=== PATIENT | female | born 1950 | race Caucasian/White ===

== ENCOUNTER 2019-08-30 12:09 | Outpatient (CLI) | payer MEDICARE, OTHER, SELFPAY ==
--- NOTE | ~2019-08-30 | XR_ITS ---
EXAMINATION: XR shoulder LT min 2V, XR shoulder RT min 2V DATE: 08/30/2019 12:42 INDICATION: Bursitis of the right shoulder. TECHNIQUE: 1. AP internally and externally rotated, AP oblique externally rotated and axillary views of the left shoulder were obtained. 2. AP internally and externally rotated, AP oblique externally rotated and axillary views of the righ t shoulder were obtained. COMPARISON: None FINDINGS: Again seen is an old healed fracture deformity at the lateral left clavicle and multiple old healed l eft rib fractures. Alignment at both shoulders is otherwise normal. No acute fracture.Mild osteoarthr itis at the bilateral glenohumeral and left acromioclavicular joints and moderate osteoarthritis at t he right acromioclavicular joint. Soft tissues are unremarkable. Visualized portions of the lungs are clear. IMPRESSION: 1. Moderate right acromioclavicular and mild left acromioclavicular and bilateral glenohumeral joints . 2. Old fracture deformities of the lateral left clavicle and a few anterolateral left ribs. Reviewed, dictated and finalized at location D. IMPRESSION: 1. Moderate right acromioclavicular and mild left acromioclavicular and bilater al glenohumeral joints. 2. Old fracture deformities of the lateral left clavicle and a few anterolatera l left ribs.
--- NOTE | ~2019-08-30 | XR_ITS ---
EXAMINATION: XR hip LT min 2V DATE: 08/30/2019 12:42 INDICATION: Left hip bursitis TECHNIQUE: Anteroposterior and frog leg lateral views of the left hip were obtained. COMPARISON: CT dated 04/12/2015 FINDINGS: Alignment is normal. No fracture. Left hip joint space is normal. Unchanged small enthesopathic ossic le near the tip of the greater trochanter along the distal anterior gluteus medius tendon. There are a few chronic sclerotic bone islands at the sacrum and left innominate bone. IMPRESSION: 1. Normal left hip joint with no acute osseous abnormality. 2. Unchanged small enthesopathic ossicle at the distal left gluteus medius tendon. Reviewed, dictated and finalized at location A. IMPRESSION: 1. Normal left hip joint with no acute osseous abnormality. 2. Unchanged small enthesopathic ossicle at the distal left gluteus medius tend on.
== END 2019-08-30 12:10 | disposition home or self-care (01) ==
PROVIDERS: PCP Family Medicine
DX: M75.51 Bursitis of right shoulder (principal); M70.62 Trochanteric bursitis, left hip; M19.011 Primary osteoarthritis, right shoulder; M19.012 Primary osteoarthritis, left shoulder
CPT/HCPCS: 73030; 73502

== ENCOUNTER 2019-09-20 10:43 | Outpatient (CLI) | payer MEDICARE, OTHER, SELFPAY ==
--- NOTE | ~2019-09-20 | CT_ITS ---
EXAMINATION:CT lung screening DATE: 09/20/2019 11:03 INDICATION: Personal history of nicotine dependence. Smoker who quit 4 years ago with 40 pack year hi story. TECHNIQUE: Computed tomography (CT) of the chest was performed without intravenous contrast. Automate d exposure control and iterative reconstruction technique were employed. The dose-length product (DLP ) was 108.69 mGy-cm. COMPARISON: Chest CT 12/03/2017 FINDINGS: There is moderate emphysema. There is mild atelectasis bilaterally. No pleural effusion. Th e heart size is normal. No pericardial effusion. There is a chronic compression fracture of T4. There are old healed left fractures. IMPRESSION: 1. Lung-RADS category 1: Negative. Continue annual screening with noncontrast low-dose chest CT in 12 months. Reviewed, dictated and finalized at location A. IMPRESSION: 1. Lung-RADS category 1: Negative. Continue annual screening with noncontrast l ow-dose chest CT in 12 months.
== END 2019-09-20 10:44 | disposition home or self-care (01) ==
PROVIDERS: PCP Family Medicine; Visit Provider Nurse Practitioner Family
DX: Z12.2 Encounter for screening for malignant neoplasm of respiratory organs (principal); Z87.891 Personal history of nicotine dependence
CPT/HCPCS: G0297

== ENCOUNTER 2020-02-16 13:37 | Outpatient (CLI) | payer MEDICARE, OTHER, SELFPAY ==
--- NOTE | ~2020-02-16 | MR_ITS ---
EXAMINATION: MR hip LT wo/w con DATE: 02/16/2020 15:02 INDICATION: Polyarthritis. Rheumatoid arthritis. TECHNIQUE: Magnetic resonance imaging (MRI) of the left hip was performed without and with 16 mL Mul tihance intravenous contrast. Sequences included full-field axial PD-weighted FS FSE, T1-weighted FS FSE and T1-weighted FSE, coronal of the pelvis with PD-weighted FS FSE, small field of view of the l eft hip with axial PD-weighted FS FSE, sagittal PD-weighted FS FSE and coronal PD weighted FS FSE. Po stcontrast small field of view coronal T1-weighted FS FSE and large ltdoc-ku-uiqi axial pelvis T1-sarah beth ghted FS FSE were obtained. Additional radial T1-weighted FGR oriented orthogonal to the acetabular r im were obtained for evaluation of the labrum. COMPARISON: Left hip radiographs dated 08/30/2019 FINDINGS: Bones/labrum/cartilage: Alignment is normal. A couple low signal intensity bone islands at the left innominate bone. No fract ure, avascular necrosis or pathologic marrow replacing process. Mild osteoarthritis at the left hip j oint with mild nonuniform joint space narrowing with partial thickness cartilage loss at the anterior and anterosuperior joint space but without degenerative subchondral changes. Small tear at the the 1 0:00-11:00 position of the anterosuperior left acetabular labrum. No cortical erosions. Fluid: Symmetric physiologic amount of fluid within both hip joints. Soft tissues: Normal and symmetric muscle bulk and signal in the pelvis and visualized proximal thighs. Partially v isualized homogeneous T1 hyperintense lipoma measuring up to 5.9 x 2.0 cm maximal transaxial dimensio ns situated between the proximal vastus intermedialis and vastus lateralis muscles and the more super ficial rectus femoris and tensor fascia marisela muscles. The iliopsoas and proximal hamstring tendons ar e normal. Moderate left gluteus medius and minimus tendinopathy with small heterotopic ossicle in the distal left gluteus minimus tendon. There is a partial thickness undersurface tear at the superior f acet insertion of the left gluteus medius tendon with asymmetric mild retraction of the anterior myot endinous junction. Mild tendinopathy at the right gluteus medius and minimus tendons without discrete tears. Mild bilateral peritrochanteric edema. More focal fluid signal and enhancement consistent wit h left gluteus medius and minimus bursitis. There are few scattered diverticula along the sigmoid col on without adjacent inflammatory change to suggest diverticulitis. The uterus is not identified and h as likely been surgically resected. Limited evaluation of visceral organs of the pelvis is otherwi se unremarkable. No pathologically enlarged pelvic/inguinal lymphadenopathy. IMPRESSION: 1. Mild left hip osteoarthritis with small tear at the anterosuperior glenoid labrum. 2. Likely acute on chronic moderate left gluteus medius and minimus tendinopathy/enthesitis with smal l enthesopathic ossicle at the distal radius minimus tendon and with partial-thickness undersurface t ear at the superior facet insertion of the gluteus medius tendon. 3. Left gluteus medius and minimus bursitis. Reviewed, dictated and finalized at location A. UM ROOFER IMPRESSION: 1. Mild left hip osteoarthritis with small tear at the anterosuperior glenoid l abrum. 2. Likely acute on chronic moderate left gluteus medius and minimus tendinopath y/enthesitis with small enthesopathic ossicle at the distal radius minimus tend on and with partial-thickness undersurface tear at the superior facet insertion of the gluteus medius tendon. 3. Left gluteus medius and minimus bursitis.
--- NOTE | ~2020-02-16 | XR_ITS ---
EXAMINATION: HAND-CHING ARTHRITIS 3+VIEWS DATE: 02/16/2020 15:22 INDICATION: Rheumatoid arthritis TECHNIQUE: Posteroanterior, lateral, and oblique views of the left and of the right hands as well as a ballcatchers view of both hands were obtained. COMPARISON: None. FINDINGS: Diffuse osteopenia but which appears significantly more severe with likely in the subarticular region s throughout the bones of the left hand and wrist relative to the contralateral bones at the right chris nd and wrist.. Bone alignment is normal. No fracture. Minimal to mild polyarticular osteoarthritis ch aracterized by minimal to mild joint space narrowing and small marginal osteophytes with typical dist ribution at the bilateral first carpal metacarpal joints and multiple predominantly distal interphala ngeal joints. Soft tissues are unremarkable. IMPRESSION: 1. Relatively symmetric mild polyarticular osteoarthritis with typical distribution in both hands. No erosions to suggest an inflammatory arthritis. 2. Asymmetric osteopenia which appears greater throughout the left hand and wrist relative to the rig ht. The asymmetry is of indeterminate etiology or significance. Regional osteopenia is seen in the le ft hand and wrist can be seen in the setting of disuse, complex regional pain syndrome. Reviewed, dictated and finalized at location A. LITE MOLDER IMPRESSION: 1. Relatively symmetric mild polyarticular osteoarthritis with typical distribu tion in both hands. No erosions to suggest an inflammatory arthritis. 2. Asymmetric osteopenia which appears greater throughout the left hand and wri st relative to the right. The asymmetry is of indeterminate etiology or signifi cance. Regional osteopenia is seen in the left hand and wrist can be seen in th e setting of disuse, complex regional pain syndrome.
--- NOTE | ~2020-02-16 | XR_ITS ---
EXAMINATION: XR foot LT standing 2V, XR foot RT standing 2V DATE: 02/16/2020 15:23 INDICATION: Rheumatoid arthritis TECHNIQUE: 1. Dorsoplantar and lateral views of the left foot were obtained. 2. Dorsoplantar and lateral views of the right foot were obtained. COMPARISON: Left foot radiographs dated 11/14/2007 and right ankle radiographs dated 10/12/2011 FINDINGS: Internal fixation for old healed fractures at the right medial and lateral malleoli. Normal alignment at both feet. No acute fractures. Joint spaces appear relatively preserved throughout both feet and ankles. No erosions to suggest an inflammatory arthritis. IMPRESSION: 1. Old healed internally fixed right medial and lateral malleolar fractures. Otherwise unremarkable b ilateral feet radiographs with no erosions to suggest an inflammatory arthritis. Reviewed, dictated and finalized at location A. Y CAPTAIN IMPRESSION: 1. Old healed internally fixed right medial and lateral malleolar fractures. Ot herwise unremarkable bilateral feet radiographs with no erosions to suggest an inflammatory arthritis.
[2020-02-16 14:16] LABS: Estimated Glomerular Filt Rate > 60
== END 2020-02-16 13:38 | disposition home or self-care (01) ==
LOC: ANHIMG 13:39
PROVIDERS: PCP Family Medicine; Visit Provider Internal Medicine
DX: M06.9 Rheumatoid arthritis, unspecified (principal); M06.852 Other specified rheumatoid arthritis, left hip; S73.102A Unspecified sprain of left hip, initial encounter; S76.912A Strain of unspecified muscles, fascia and tendons at thigh level, left thigh, initial encounter; R60.0 Localized edema; M71.552 Other bursitis, not elsewhere classified, left hip; M18.0 Bilateral primary osteoarthritis of first carpometacarpal joints; M19.042 Primary osteoarthritis, left hand; M19.041 Primary osteoarthritis, right hand
CPT/HCPCS: 73130; 73620; 73723; A9577

== ENCOUNTER 2020-02-19 09:13 | Outpatient (CLI) | payer MEDICARE, OTHER, SELFPAY ==
--- NOTE | ~2020-02-19 | NM_ITS ---
EXAMINATION: NM kimo stress w perfusion DATE: 02/19/2020 12:16 INDICATION: Shortness of breath and chest pain TECHNIQUE: Rest images were obtained following intravenous administration of 9 mCi Tc99m tetrofosmin (Myoview). The patient was infused intravenously with Lexiscan (Regadenoson). Then, 26.5 mCi Tc99m te trofosmin (Myoview) was administered intravenously, and stress images were obtained. Data was reconst ructed into short axis and horizontal and vertical long axis SPECT images. Gated SPECT images were al so obtained. COMPARISON: None. FINDINGS: There is no definite reversible or fixed perfusion abnormality to suggest ischemia or infar ction. There is normal left ventricular chamber size, wall motion and ejection fraction. Left ventr icular ejection fraction measures >70%. IMPRESSION: 1. Normal myocardial perfusion at rest and during stress. 2. Left ventricular ejection fraction measuring >70%. Reviewed, dictated and finalized at location A. FILLER
--- NOTE | 2020-02-19 09:23 | EST_ITS ---
Patient Info Name: Ceci Del Cid Age: 69 years : 1950 Gender: Female Ht: 61 in Wt: 182 lbs BSA: 1.92 m2 Exam Date: 02/19/2020 10:48 AM Exam Location: [facility] Stress Patient Status: Outpatient Admit Date: 02/19/2020 Staff Ordering Physician: Mohamud Fong APRN Attending Provider: Mohamud Fong APRN Exercise Technologist: Whitney Mccormick RDCS Exercise Physician: Jake Guy DO Exam Type: CA stress kimo w NM Study Info Indications R06.02 - Shortness of breath A regadenoson stress test was performed. Summary 1. 1. Negative lexiscan stress test for ischemic ST changes by ECG criteria. 2. 2. Baseline hypertension. 3. 3. Nuclear scan to follow and will be reported separately. Please correlate with it. 4. 4. Patient informed of the above results. Protocol: Lexiscan Stress ECG Details Stage: REST Duration (min): 7 min : 14 sec HR (bpm): 63 SBP (mmHg): 171 DBP (mmHg): 77 Stage: REST Duration (min): 11 min : 12 sec HR (bpm): 64 SBP (mmHg): 171 DBP (mmHg): 77 Stage: STAGE 1 Duration (min): 0 min : 59 sec HR (bpm): 79 SBP (mmHg): 174 DBP (mmHg): 81 Stage: RECOVERY Duration (min): 1 min : 0 sec HR (bpm): 95 SBP (mmHg): 174 DBP (mmHg): 81 Stage: RECOVERY Duration (min): 2 min : 0 sec HR (bpm): 95 SBP (mmHg): 192 DBP (mmHg): 77 Stage: RECOVERY Duration (min): 3 min : 0 sec HR (bpm): 95 SBP (mmHg): 179 DBP (mmHg): 75 Stage: RECOVERY Duration (min): 3 min : 3 sec HR (bpm): 95 SBP (mmHg): 179 DBP (mmHg): 75 Rest HR: 64 bpm Peak HR: 97 bpm Rest Sys BP: 171 mmHg Peak Sys BP: 192 mmHg Max Pred HR: 152 bpm % Max Pred HR: 64 % Target HR: 129 bpm Max RPP: 18,624 bpm*mmHg Termination Reason: Completed protocol Cardiac Symptoms: Shortness of breath Total Time: 1 min : 0 sec Rest Lester BP: 77 mmHg Peak Lester BP: 77 mmHg Total Dose: 0.4 mg Resting ECG Sinus rhythm, RBBB. Stress ECG No ST changes. Arrhythmias None. Report Signatures
== END 2020-02-19 09:14 | disposition home or self-care (01) ==
PROVIDERS: Visit Provider Nurse Practitioner Family
DX: R06.02 Shortness of breath (principal); R07.89 Other chest pain
CPT/HCPCS: 78452; 93017; A9502; J2785

== ENCOUNTER 2020-02-29 12:29 | Outpatient (CLI) | payer MEDICARE, OTHER, SELFPAY ==
--- NOTE | 2020-02-29 15:55 | PCRCNOTE ---
UNABLE TO OBTAIN ABG AFTER MULTIPLE ATTEMPTS BY 2 THERAPISTS, SPO2 98 ON 2.5 L O2
== END 2020-02-29 12:30 | disposition home or self-care (01) ==
PROVIDERS: Visit Provider Nurse Practitioner Family
DX: J44.9 Chronic obstructive pulmonary disease, unspecified (principal); R09.02 Hypoxemia
CPT/HCPCS: 94060; 94618; 94726

== ENCOUNTER 2020-04-03 14:13 | Outpatient (CLI) | payer MEDICARE, OTHER, SELFPAY ==
[2020-04-03 14:40] LABS: Alveolar/Arterial O2 Gradient 66.2 mmHg; Base Excess ABG -1.1 mEq/l (+/-2.0); Fractional Inspired Oxygen 30 %; HCO3 ABG 22.7 mEq/l (22.0-26.0); Oxygen Content ABG 18.1 %vol (16.0-22.0); Oxyhemoglobin 96.8 % THb (90.0-100.0); PCO2 ABG 35.1 mmHg (35.0-45.0); PO2 ABG 106.5 mmHg (80.0-100.0); PO2 FiO2 Ratio Arterial Blood 3.55 %; Total Hemoglobin 13.2 g/dL (12.0-18.0); pH ABG 7.428 (7.350-7.450)
[2020-04-03 14:41] LABS: Device NASAL CANNULA; Liters per Minute 2.5 LPM; Site Drawn RIGHT BRACHIAL
== END 2020-04-03 14:14 | disposition home or self-care (01) ==
PROVIDERS: Visit Provider Nurse Practitioner Family
DX: J44.9 Chronic obstructive pulmonary disease, unspecified (principal)
CPT/HCPCS: 36600; 82805

== ENCOUNTER 2020-11-11 09:33 | Outpatient (CLI) | payer MEDICARE, OTHER, SELFPAY ==
--- NOTE | ~2020-11-11 | CT_ITS ---
EXAMINATION: CT lung screening DATE: 11/11/2020 09:53 INDICATION: Cough, personal history of nicotine dependence, prior smoker with 100 pack year history TECHNIQUE: Computed tomography (CT) of the chest was performed without intravenous contrast. The dose -length product (DLP) was 145.85 mGy-cm. Automated exposure control and iterative reconstruction tech Fliplingoque were employed. COMPARISON: 09/20/2019 FINDINGS: There is moderate emphysema. No suspicious pulmonary nodules are identified. Calcified pulm onary nodules are consistent with old granulomatous disease. There is mild atelectasis in the lung ba ses. There are no focal airspace opacities. No pathologically enlarged thoracic lymph nodes are ident ified. The heart size is normal. Calcified coronary artery atherosclerosis is noted. An old T4 compre ssion fracture is unchanged. IMPRESSION: 1. Lung-RADS category 1: Negative. Continue annual screening with noncontrast low-dose chest CT in 12 months. Reviewed, dictated and finalized at location A. IMPRESSION: 1. Lung-RADS category 1: Negative. Continue annual screening with noncontrast l ow-dose chest CT in 12 months.
== END 2020-11-11 09:34 | disposition home or self-care (01) ==
PROVIDERS: PCP Physician Assistant; Visit Provider Nurse Practitioner Family
DX: Z12.2 Encounter for screening for malignant neoplasm of respiratory organs (principal); Z87.891 Personal history of nicotine dependence
CPT/HCPCS: 71271

== ENCOUNTER 2021-12-03 09:33 | Outpatient (CLI) | payer MEDICARE, OTHER, SELFPAY ==
--- NOTE | ~2021-12-03 | CT_ITS ---
EXAMINATION: CT lung screening DATE: 12/03/2021 11:07 INDICATION: History of tobacco dependence. Lung cancer screening. TECHNIQUE: Computed tomography (CT) of the chest was performed without intravenous contrast. The dose -length product was 111.67 mGy-cm. Automated exposure control and iterative reconstruction technique were employed. COMPARISON: CT dated 11/11/2020 FINDINGS: Heart size normal. No significant pleural or pericardial effusion. There is atherosclerosis of the aorta and coronary arteries. There is atherosclerosis of the aorta and coronary arteries. Hea rt size normal. No thoracic lymphadenopathy. No significant pleural or pericardial effusion. There is atelectasis/scarring in the lingula and left lower lobe. There is emphysema. No endobronchial lesion s. There is a stable 6 x 5 mm fissural nodule on the left which appear subsolid. No new pulmonary nod ules or masses. IMPRESSION: 1. Lung-RADS category 2: Benign appearance or behavior. Continue annual screening with noncontrast lo w-dose chest CT in 12 months. Reviewed, dictated and finalized at location A. IMPRESSION: 1. Lung-RADS category 2: Benign appearance or behavior. Continue annual screeni ng with noncontrast low-dose chest CT in 12 months.
--- NOTE | 2021-12-03 09:42 | ECHO_ITS ---
Patient Info Name: Ceci Del Cid Age: 71 years : 1950 Gender: Female Ht: 61 in Wt: 185 lbs BSA: 1.94 m2 HR: 62 bpm BP: 177 / 103 mmHg Heart Rhythm: Sinus Rhythm Exam Date: 12/03/2021 10:20 AM Exam Location: [facility] Pulmonary Patient Status: Outpatient Admit Date: 12/07/2021 Staff Ordering Physician: Mohamud Fong APRN Food Storeroom Clerk: Amanda Watkins RDCS Attending Provider: Nabil Hamilton MD Referring Physician: Ajit DUMONT; Exam Type: CA echo doppler color flow Study Info Indications R06.02 - Shortness of breath Complete two-dimensional, color flow and Doppler transthoracic echocardiogram is performed. Summary 1. Complete two-dimensional, color flow and Doppler transthoracic echocardiogram is performed. 2. Normal left ventricular size and thickness with good contractility of all segments. The ejection fraction 62%. Grade 2 diastolic dysfunction is present. 3. Left atrial chamber dimension is moderately enlarged. 4. No significant valve disease. 5. Normal sinus rhythm. Left Ventricle Left ventricular chamber dimension is normal. Left ventricular systolic function is normal, estimated at 60-65%. There is no increased left ventricular wall thickness. Left ventricular septal wall motion is normal. The left ventricular diastolic function is grade II diastolic dysfunction. Right Ventricle Right ventricular chamber dimension is normal. Right ventricular systolic function is normal. Left Atria Left atrial chamber dimension is moderately enlarged. Right Atria Right atrial chamber dimension is normal. Aortic Valve The aortic valve is trileaflet. There is no aortic valve sclerosis. There is no aortic valve stenosis. There is no aortic valve regurgitation. Pulmonic Valve The pulmonic valve is normal. There is no pulmonic valve stenosis. There is trace pulmonic regurgitation. Mitral Valve The mitral valve has normal leaflets. There is no mitral valve stenosis. There is trace mitral valve regurgitation. Tricuspid Valve The tricuspid valve leaflets are normal. There is no significant tricuspid valve stenosis. There is no tricuspid valve regurgitation. No pulmonary hypertension, estimated pulmonary arterial systolic pressure is Empty. Pericardium/Pleural The pericardium appears normal. There is no pericardial effusion. Inferior Vena Cava Normal inferior vena cava with >50% collapse upon inspiration consistent with Empty right atrial pressure, Empty. Aorta The aortic root size at the sinus of Valsalva is normal. The prox ascending aorta size is normal. Left Ventricular Outflow Tract Name Value Normal LVOT 2D LVOT Diameter 2.0 cm LVOT Doppler LVOT Peak Gradient 3 mmHg LVOT Mean Gradient 2 mmHg LVOT VTI 21 cm LVOT VTI/AV VTI Ratio 0.8 LVOT Stroke Volume 69 ml LVOT CO 4.5 l/min LVOT CI 2.3 l/min/m2 Mitral Valve ---------
== END 2021-12-03 09:34 | disposition home or self-care (01) ==
LOC: ANHCARD 09:35
PROVIDERS: PCP Family Medicine; Visit Provider Nurse Practitioner Family
DX: Z12.2 Encounter for screening for malignant neoplasm of respiratory organs (principal); Z87.891 Personal history of nicotine dependence; I51.7 Cardiomegaly; R06.09 Other forms of dyspnea
CPT/HCPCS: 71271; 93306

== ENCOUNTER 2021-12-07 09:55 | Outpatient (CLI) | payer MEDICARE, OTHER, SELFPAY ==
--- NOTE | ~2021-12-07 | MR_ITS ---
EXAMINATION: MR femur LT wo con DATE: 12/07/2021 10:58 INDICATION: Left thigh pain. TECHNIQUE: Magnetic resonance imaging (MRI) of the left femur was performed without intravenous contr ast. COMPARISON: Pelvis and left hip radiographs 11/27/2021 FINDINGS: Bone alignment is normal. No fracture. Bone marrow signal intensity is normal. There is mod erate left trochanteric bursitis. The thigh musculature is normal. The neurovascular bundles are norm al. There is a small knee joint effusion. IMPRESSION: 1. Moderate left trochanteric bursitis. 2. Small left knee joint effusion. Reviewed, dictated and finalized at location A.
== END 2021-12-07 09:56 | disposition home or self-care (01) ==
PROVIDERS: PCP Family Medicine; Visit Provider Orthopaedic Surgery
DX: M70.62 Trochanteric bursitis, left hip (principal); M25.462 Effusion, left knee; R06.09 Other forms of dyspnea
CPT/HCPCS: 73721

== ENCOUNTER → 2022-01-09 09:34 | Outpatient (CLI) | payer MEDICARE, OTHER, SELFPAY ==
--- NOTE | ~2022-01-09 | DEXA_ITS ---
Bone Density Report Name: QUE SOTO Age: 71 Sex: Female Ethnicity: White Date of : 1950 Indication: postmenopausal; screening for osteoporosis; prior fracture; asthma or emphysema; hysterectomy; rheumatoid arthritis; Referring Provider: Tara Rg Study: Bone densitometry was performed. Exam Date: January 09, 2022 Accession number: [id number] Bone Density: Region BMD T-score Z-score Classification AP Spine (L1-L4) 0.831 -2.0 0.2 Osteopenia Femoral Neck (Left) 0.633 -1.9 -0.1 Osteopenia Total Hip (Left) 0.704 -2.0 -0.4 Osteopenia Femoral Neck (Right) 0.614 -2.1 -0.3 Osteopenia Total Hip (Right) 0.657 -2.3 -0.8 Osteopenia Total Hip Mean 0.681 -2.2 -0.6 Osteopenia World Health Organization criteria for BMD impression classify patients as: Normal (T-score at or above -1.0), Osteopenia (T-score between -1.0 and -2.5), or Osteoporosis (T-score at or below -2.5). 10-year Fracture Risk(1): Major Osteoporotic Fracture 22% Hip Fracture 4.6% Reported Risk Factors: [place] (), Neck BMD=0.614, BMI=34.3, previous fracture, rheumatoid arthritis (1) FRAX(R) Version 3.08. Fracture probability calculated for an untreated patient. Fracture probability may be lower if the patient has received treatment. Clinical Information Provided by Patient: Has had a low trauma fracture Has rheumatoid arthritis Has used the following medications: Vitamin D, Calcium Has the following medical conditions: Asthma or Emphysema, Hysterectomy Patient maximum height was 61.5 Menopause Age: 30 No regular weight bearing exercise Drinks caffeinated beverages Onset of menses at age 12 Number of children 2 Impression: The patient has low bone mass, based on the Right Total Hip T-score. The patient has an estimated ten-year risk of hip fracture of 4.6% and an estimated ten-year risk of major fracture of 22%, based on the WHO FRAX algorithm. The patient has risk factors, including: previous fracture. Discussion: BONE DENSITY IS LOW AT ONE OR MORE SKELETAL SITES. THE PATIENT'S BMD AND CLINICAL RISK FACTORS CONTRIBUTE TO THIS PATIENT'S HIGH RISK OF FRACTURE. This patient's lowest T-score is low at one or more skeletal sites. It meets the World Health Organization's (WHO) criteria for ?low bone mass? (T-score between -1.0 and -2.5). The patient's 10-year risk of hip fracture and 10 year risk of a major osteoporotic fracture as calculated by FRAX exceeds the threshold where pharmacological therapy is recommended by the National Osteoporosis Foundation (NOF). However, all treatment decisions require clinical judgment and consideration of individual patient factors, including patient preferences, comorbidities, previous drug use, risk factors not captured in the FRAX model (e.g., frailty, falls, vitamin D deficiency,
== END ==
PROVIDERS: PCP Family Medicine; Visit Provider Internal Medicine
DX: M81.0 Age-related osteoporosis without current pathological fracture (principal); M80.08XD Age-related osteoporosis with current pathological fracture, vertebra(e), subsequent encounter for fracture with routine healing; M06.9 Rheumatoid arthritis, unspecified; M85.89 Other specified disorders of bone density and structure, multiple sites
CPT/HCPCS: 77080

== ENCOUNTER 2022-05-28 11:39 | Outpatient (CLI) | payer MEDICARE, OTHER, SELFPAY ==
--- NOTE | 2022-05-28 11:44 | ECG_ITS ---
Measurements Intervals [place] Rate: 69 P: 75 SC: 154 QRS: -18 QRSD: 139 T: 29 QT: 414 QTc: 445 Interpretive Statements SINUS RHYTHM RIGHT BUNDLE BRANCH BLOCK BASELINE ARTIFACT- II, III ABNORMAL ECG NO PREVIOUS ECG AVAILABLE FOR COMPARISON Electronically Signed On 05-28-2022 11:59:39 CDT by Jake Guy D.O.
== END 2022-05-28 11:40 | disposition home or self-care (01) ==
PROVIDERS: PCP Family Medicine; Visit Provider Nurse Practitioner Family
DX: R07.9 Chest pain, unspecified (principal); I45.10 Unspecified right bundle-branch block
CPT/HCPCS: 93005

== ENCOUNTER 2022-05-30 11:50 | Inpatient (IN) | payer MEDICARE, OTHER, SELFPAY ==
[2022-05-30] VITALS (30 sets, daily range): BP systolic 115–153; BP diastolic 62–100; PULSE 76–93; RESP 15–24; TEMP 36.3–36.4; O2SAT 94–100; BMI 34.3
--- NOTE | ~2022-05-30 | XR_ITS ---
XR chest 1V portable 05/30/2022 12:27 Indication: Shortness of breath Procedure: AP portable chest Comparison: Comparison to multiple prior studies sequentially, with oldest reviewed study dated 01/13. Findings: Borderline heart size. Mild interstitial edema. No pleural effusion or pneumothorax. No acu te osseous abnormality. Impression: 1: Mild interstitial edema. Reviewed, dictated and finalized at location A. Impression: 1: Mild interstitial edema.
--- NOTE | ~2022-05-30 | XR_ITS ---
EXAMINATION: XR chest 1V portable Exam Date/Time: 06/01/2022 21:00 CDT HISTORY: increased respirations; chest tightness Comparison: 05/30/2022; CTPA 05/31/2022. RESULT: Lines, tubes, and devices: None. Lungs and pleura: No focal consolidation or pneumothorax. Diffuse reticular opacities, likely combin ation of emphysematous and senescent change. Bibasilar scar/atelectasis. Cardiomediastinal silhouette: Stable. Other: No acute osseous or upper abdominal finding. IMPRESSION: No acute cardiopulmonary process. Known right upper lobe nodule better seen in the prior CT, prior re commendations are unchanged. Reviewed, dictated and finalized at location K. IMPRESSION: No acute cardiopulmonary process. Known right upper lobe nodule better seen in the prior CT, prior recommendations are unchanged.
--- NOTE | ~2022-05-30 | XR_ITS ---
XR chest 1V portable DATE: 06/03/2022 10:39 INDICATION: Shortness of breath TECHNIQUE: Portable AP chest on 06/03/2022 at 1036 hours COMPARISON: 06/02/2021 portable AP chest at 1223 hours FINDINGS: There is persistent mild infiltrate or atelectasis in the left lower lung field. The lungs otherwise appear clear. No pleural effusion or pulmonary vascular congestion or pneumothorax is detected. Size appears normal. There is calcification of the aortic arch and descending thoracic aorta. Diffuse osteopenia. Impression: Persistent mild infiltrate or atelectasis, left lower lung Reviewed, dictated and finalized at location B. Impression: Persistent mild infiltrate or atelectasis, left lower lung
--- NOTE | ~2022-05-30 | CT_ITS ---
EXAMINATION: CTA chest PE protocol DATE: 05/31/2022 13:03 CDT INDICATION: Hypoxia and shortness of breath. Elevated troponin levels. TECHNIQUE: Computed tomographic angiography (CTA) of the chest was performed with 100 mL Omnipaque-35 0 intravenous contrast. The dose-length product was 504.73 mGy-cm. Maximum intensity projection 3D-re constructions of the aorta and other arteries were constructed by the technologist on a separate work station. Automated exposure control and iterative reconstruction technique were employed. COMPARISON: CT dated 12/03/2021. FINDINGS: Borderline heart size. Study is technically adequate without evidence for pulmonary embolis m. There is atherosclerosis of the aorta without aneurysm or dissection. The upper abdomen is unremar kable. No significant thoracic lymphadenopathy. No pleural or pericardial effusion. There is emphysem a. There is a new 9 mm peripherally calcified nodule in the right upper lobe. There are adjacent sate llite nodules measuring 3 mm or less. There is left lower lobe atelectasis/scarring. There is mild curry perior endplate compression deformity of T4 which is chronic. Stable 5 mm fissural nodule on the left . IMPRESSION: 1. New 9 mm right upper lobe nodule with peripheral calcification, suspicious for malignancy. Recomme nd follow-up low dose CT chest or follow-up PET/CT examination for further assessment. There are yaa tional smaller satellite nodules in the right upper lobe measuring 3 mm or less. 2: No evidence for pulmonary embolism. 3: Emphysema. Reviewed, dictated and finalized at location A. IMPRESSION: 1. New 9 mm right upper lobe nodule with peripheral calcification, suspicious f or malignancy. Recommend follow-up low dose CT [facility]. There are additional smaller satellite nodules in the right upper lobe measuring 3 mm or less. 2: No evidence for pulmonary embolism. 3: Emphysema.
--- NOTE | ~2022-05-30 | XR_ITS ---
EXAMINATION: XR chest 1V portable INDICATION: Shortness of breath TECHNIQUE: Portable AP chest at 1223 hours COMPARISON: 06/01/2022 FINDINGS: There are patchy opacities of the left lung base. No pleural effusion or pneumothorax. The cardiomediastinal silhouette is normal. Known right upper lobe nodule is not well demonstrated. IMPRESSION: 1. Patchy left basilar airspace opacity, consistent with atelectasis versus pneumonia. Reviewed, dictated and finalized at location L. IMPRESSION: 1. Patchy left basilar airspace opacity, consistent with atelectasis versus pne umonia.
--- NOTE | 2022-05-30 11:56 | ECG_ITS ---
Measurements Intervals [place] Rate: 89 P: 72 NV: 157 QRS: -5 QRSD: 138 T: 42 QT: 405 QTc: 495 Interpretive Statements SINUS RHYTHM RIGHT BUNDLE BRANCH BLOCK BASELINE ARTIFACT- I, II, III, AVR, AVL, AVF, V1, V3-V5 ABNORMAL ECG COMPARED TO ECG 05/28/2022 11:56:17 NO SIGNIFICANT CHANGES Electronically Signed On 05-30-2022 21:31:50 CDT by Jake Guy D.O.
[2022-05-30 12:11] LABS: Basophils Percent Auto 0.3 % (0.2-1.2); Eosinophils Percent Auto 0.1 % (0-4.4); Hemoglobin 13.9 g/dL (12.0-15.0); Immature Granulocyte Absolute 0.03 K/mm3 (0.00-0.031); Immature Granulocyte Percent A 0.4 % (0-0.5); Lymphocytes Absolute Auto 1.14 K/mm3 (0.9-3.2); Lymphocytes Percent Auto 14.7 % (18.3-44.2); Mean Corpuscular HGB Conc 32.3 g/dl (32-36); Mean Corpuscular Hemoglobin 27.7 pg (26-34); Mean Corpuscular Volume 85.8 fl (80-100); Monocytes Absolute Auto 0.7 K/mm3 (0.1-0.6); Monocytes Percent Auto 8.6 % (2.6-8.5); Neutrophils Absolute Auto 5.9 K/mm3 (1.3-6.7); Neutrophils Percent Auto 75.9 % (45.5-73.1); Platelet Count Result 174 k/mm3 (150-375); Red Blood Count 5.01 M/mm3 (4.2-5.4); Red Cell Distribution Width 13.8 % (11.5-14.5); White Blood Count 7.8 K/mm3 (4.5-10.0)
[2022-05-30 12:22] LABS: Alanine Aminotransferase 18 U/L (6-35); Albumin Level 4.4 g/dL (3.5-5.1); Alkaline Phosphatase 100 U/L (38-126); Anion Gap 6 mmol/L (8-16); Aspartate Amino Transferase 26 U/L (14-36); Bilirubin,Total 0.5 mg/dL (0.2-1.3); Blood Urea Nitrogen 16 mg/dL (7-17); Calcium 8.4 mg/dL (8.4-10.2); Carbon Dioxide 26 mmol/L (22-30); Chloride 108 mmol/L (98-107); Estimated Glomerular Filt Rate > 60; Glucose 137 mg/dL (65-110); Potassium 4.2 mmol/L (3.4-5.0); Sodium 140 mmol/L (137-145)
--- NOTE | 2022-05-30 12:31 | ED.SOB ---
HPI - SOB/Dyspnea General Chief Complaint: Shortness of Breath/Dyspnea Stated Complaint: SOB Time Seen by Provider: 05/30/22 12:32 Source: patient, family and EMS Mode of arrival: EMS Limitations: no limitations History of Present Illness HPI Narrative: 71 years old white female, history of COPD came to the emergency room from home by ambulance complaining of gradual increase of shortness of breath, productive cough and wheezing 7 days ago. This morning was not able to breathe. Patient received Solu-Medrol, 2 albuterol treatment and magnesium sulfate in the ambulance prior to arrival and was placed on BiPAP. Patient denies any chest pain, fever, chills, nausea, vomiting, back pain or leg pain. Related Data Allergies Allergy/AdvReac Type Severity Reaction Status Date / Time IVORY SOAP Allergy Unknown RASH Uncoded 05/11/22 13:17 Review of Systems Review of Systems: All systems reviewed & are unremarkable except as noted in HPI and below PMFSH Past Medical History Medical History Abdominal pain Anxiety Bilateral hand pain Bursitis of left hip Chronic obstructive pulmonary disease, unspecified Depression Diarrhea Ear pain Fracture of vertebra due to osteoporosis with routine healing Generalized osteoarthritis of multiple sites History of tobacco abuse Hoarseness Hypertension Impacted cerumen of left ear Light headedness Nausea & vomiting Osteoarthritis of left hip Rheumatoid arthritis 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) SOB (shortness of breath) on exertion Undifferentiated connective tissue disease (~2009) Urinary incontinence Vision changes Weight gain Surgical History Surgical History History of ankle surgery Left ORIF History of carpal tunnel release History of cholecystectomy 09/22/2013 History of hemorrhoidectomy Hx of bladder repair surgery Hx of total hysterectomy Family History Family History Father Diabetes mellitus Hypertension Malignant neoplasm of prostate Family history of heart disease in male family member before age 55 Family history of cardiovascular disease Family history of malignant neoplasm Mother Family history of primary malignant neoplasm of liver Sibling Malignant neoplasm of prostate Family history of lung cancer Family history of heart disease in male family member before age 55 Family history of cardiovascular disease Family history of chronic obstructive pulmonary disease Other Arthritis Depression Heart disease High cholesterol Social History Social History Smoking packs per day: 2 Smoking cigarettes per day: 40.0 Years smoked: 50 Smoking pack-years: 100.00 Smoking status: Former smoker Second hand tobacco smoke exposure: No Smoking end date: 03/15/15 Alcohol intake: current Alcohol use details: 2 drinks of hard liquor consumed occasionally Substance use: current Substance use type: marijuana Other substance usage details: edibles for relaxation, couple times a month Gender identity (if verbalized by the patient): Female Exam Narrative: General appearance: Well-developed, well-nourished Skin: Normal color Head: Normocephalic, nontraumatic Eyes: Clear conjunctiva ENT: Oropharynx normal, ears normal, nose normal Neck: Supple, nontender Chest and respiratory: Diffuse expiratory wheezing bilaterally Heart: Regular rate/rhythm Abdomen: Soft, nontender, no organomegaly, quiet bowel sounds Vascular: Normal peripheral pulses, normal capillary refill. 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
--- NOTE | 2022-05-30 12:38 | PC.NURSE ---
Patient has family at bedside now and patient appears to be calmer and her work of breathing is less than compared to before.
[2022-05-30 13:38] LABS: Partial Thromboplastin Time 41.7 SECONDS (22.3-36.8); Prothrombin Time 12.6 Seconds (11.1-14.7)
[2022-05-30 13:41] LABS: NT Pro B Type Natriuretic Pept 790 pg/mL (19.9-100); Troponin I 0.038 ng/mL (0.000-0.034)
[2022-05-30 14:07] LABS: Influenza A QL RT-PCR Negative (Negative); Influenza B QL RT-PCR Negative (Negative); RSV RNA, RT-PCR Negative (Negative); SARS-CoV-2 RNA PCR Negative
[2022-05-30] MEDS: methylPREDNISolone SOD SUCC 125 MG VIAL 60 MG IV PUSH ×3 (14:16→23:58)
[2022-05-30] MEDS: ALBUTEROL SULFATE NEB 2.5 MG/3 ML INH INHALATION ×2 (14:49→20:15)
[2022-05-30] MEDS: IPRATROPIUM BR 0.02% INH SOLN 0.5 MG/2.5 ML VIAL INHALATION ×2 (14:50→20:15)
--- NOTE | 2022-05-30 17:04 | ADMGEN ---
This patient, Ceci Del Cid, was admitted to IMU Room 200-01. Patient/family oriented to hospital policies and general routines including ID bracelet, bed and alarms, visiting hours, pain management, procedures, bathroom and other care routines, personal items, smoking policy, room service/diet, and visiting hours. Information on how to activate the Rapid Response Team has been discussed. Patient/Family are encouraged to report perceived risks to care and to ask questions if they do not understand what they are told or what they should do.
--- NOTE | 2022-05-30 18:00 | PM.IMHP ---
H&P: HPI History of Present Illness Date/Time: 05/30/22 18:00 Chief Complaint: Shortness of breath. Narrative: This is a 71-year-old female with chronic obstructive respiratory failure on 2 L, chronic obstructive pulmonary disease, grade 2 diastolic dysfunction, and hypertension who presented to the emergency department via EMS from home for evaluation of shortness of breath. Patient provides the following history. Her shortness of breath limits her day-to-day activities and she gets short of breath even when walking about the home. If and when she goes out to shop she uses the electric scooter. Over the past 7 days or so she has had increasing dyspnea on lesser and lesser exertion with an increase in wheezing and cough productive of yellow phlegm. She has been using her nebulizers at home as instructed with lesser and lesser benefit. This morning she became increasingly short of breath and anxious and EMS was summoned. In route to the hospital she received magnesium sulfate, Solu-Medrol, and albuterol nebulizer x2. She was started on CPAP as well due to work of breathing. In the ED she received a another nebulizer treatment and she was admitted to IMU for close monitoring and further treatment. Chest x-ray showed mild interstitial edema and a borderline heart size. EKG showed sinus rhythm without ST segment changes. Initial troponin was mildly elevated but has trended upwards to 0.635. With further questioning she does have occasional chest tightness however she has always attributed this to to her work of breathing. Her chest pain is not any different today than what it has been in the past. She denies fever, chills, sweats, sinus congestion, sore throat, pleuritic pain, sensations of racing heart, orthopnea, paroxysmal nocturnal dyspnea, lower extremity edema, nausea, vomiting, and sweats. She has no known history of coronary artery disease or venous thromboembolism. At the time my evaluation she is feeling much better, has been weaned from BiPAP, and is at her baseline oxygen requirement. Review of Systems Review of Systems: Twelve systems were reviewed and are negative except for as per HPI. 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) Undifferentiated connective tissue disease (~2009) Urinary incontinence Vision changes Surgical History Surgical History History of ankle surgery Left ORIF History of carpal tunnel release History of cholecystectomy 09/22/2013 History of hemorrhoidectomy Hx of bladder repair surgery Hx of total hysterectomy Family History Family History Father Diabetes mellitus Hypertension Malignant neoplasm of prostate Family history of heart disease in male family member before age 55 Family history of cardiovascular disease Family history of malignant neoplasm Mother Family history of primary malignant neoplasm of liver Sibling Malignant neoplasm of prostate Family history of lung cancer Family history of heart disease in male family member before age 55 Family history of cardiovascular disease Family history of chronic obstructive pulmonary disease Other Arthritis Depression Heart disease High cholesterol Social History Social History (Updated 05/30/22 @ 22:04 by Monika Araujo PA-C) Social History: Surrogate medical decision maker: Iraj Del Cid, spouse. Code status: Full code.
[2022-05-30 18:19] LABS: Troponin I 0.511 ng/mL (0.000-0.034)
--- NOTE | 2022-05-30 18:24 | ECG_ITS ---
Measurements Intervals [place] Rate: 81 P: 66 MT: 158 QRS: -2 QRSD: 140 T: 39 QT: 446 QTc: 520 Interpretive Statements SINUS RHYTHM RIGHT BUNDLE BRANCH BLOCK BASELINE ARTIFACT- I, II, III, AVF ABNORMAL ECG COMPARED TO ECG 05/30/2022 12:01:43 NO SIGNIFICANT CHANGES Electronically Signed On 05-31-2022 8:06:10 CDT by Jake Guy D.O.
--- NOTE | 2022-05-30 18:38 | ECG_ITS ---
Measurements Intervals [place] Rate: 82 P: 77 MI: 167 QRS: -3 QRSD: 132 T: 32 QT: 411 QTc: 483 Interpretive Statements SINUS RHYTHM RIGHT BUNDLE BRANCH BLOCK BASELINE ARTIFACT- II, III, AVR, AVL, AVF ABNORMAL ECG COMPARED TO ECG 05/30/2022 12:01:43 NO SIGNIFICANT CHANGES Electronically Signed On 06-01-2022 7:57:34 CDT by Jake Guy D.O.
[2022-05-30 21:11] LABS: Troponin I 0.635 ng/mL (0.000-0.034)
[2022-05-30] MEDS: ENOXAPARIN 40 MG/0.4 ML SYRINGE SUB-Q (21:44)
[2022-05-30] MEDS: ACETAMINOPHEN 325 MG TABLET 650 MG PO (22:29)
[2022-05-30] MEDS: ALPRAZolam (*CRX) 0.125 MG TABLET PO (22:30)
[2022-05-30] MEDS: ENOXAPARIN 60 MG/0.6 ML SYRINGE 45 MG SUB-Q (22:30)
[2022-05-30] MEDS: rOPINIRole HCL 0.5 MG TABLET PO (22:33)
[2022-05-30] MEDS: FUROSEMIDE INJ 40 MG/4 ML VIAL 20 MG IV PUSH (22:33)
[2022-05-30] MEDS: AZITHROMYCIN 250 MG TABLET 500 MG PO (22:33)
[2022-05-31] VITALS (30 sets, daily range): BP systolic 144–175; BP diastolic 56–82; PULSE 66–90; RESP 16–26; TEMP 36–36.6; O2SAT 96–100
[2022-05-31] MEDS: ALBUTEROL SULFATE NEB 2.5 MG/3 ML INH INHALATION ×6 (02:18→23:48)
[2022-05-31] MEDS: IPRATROPIUM BR 0.02% INH SOLN 0.5 MG/2.5 ML VIAL INHALATION ×6 (02:18→23:49)
[2022-05-31 04:27] LABS: Hematocrit 41.4 % (37.0-47.0); Hemoglobin 13.6 g/dL (12.0-15.0); Mean Corpuscular HGB Conc 32.9 g/dl (32-36); Mean Corpuscular Hemoglobin 27.4 pg (26-34); Mean Corpuscular Volume 83.3 fl (80-100); Mean Platelet Volume 9.9 fl (7.4-10.4); Platelet Count Result 149 k/mm3 (150-375); Red Blood Count 4.97 M/mm3 (4.2-5.4); Red Cell Distribution Width 13.4 % (11.5-14.5); White Blood Count 3.9 K/mm3 (4.5-10.0)
[2022-05-31 04:37] LABS: Alanine Aminotransferase 18 U/L (6-35); Albumin Level 4.3 g/dL (3.5-5.1); Alkaline Phosphatase 94 U/L (38-126); Anion Gap 10 mmol/L (8-16); Aspartate Amino Transferase 25 U/L (14-36); Bilirubin,Total 0.4 mg/dL (0.2-1.3); Blood Urea Nitrogen 15 mg/dL (7-17); Calcium 8.7 mg/dL (8.4-10.2); Carbon Dioxide 27 mmol/L (22-30); Chloride 101 mmol/L (98-107); Estimated CRCL calculation 58 ml/min; Estimated Glomerular Filt Rate > 60; Glucose 191 mg/dL (65-110); Magnesium 2.1 mg/dL (1.6-2.3); Potassium 3.8 mmol/L (3.4-5.0); Sodium 138 mmol/L (137-145)
[2022-05-31] MEDS: methylPREDNISolone SOD SUCC 125 MG VIAL 60 MG IV PUSH ×4 (05:24→23:45)
[2022-05-31] MEDS: BUDESONIDE RESPULE NEB 0.5 MG/2 ML AMP 0.25 MG INHALATION ×2 (08:43→20:11)
[2022-05-31] MEDS: ENOXAPARIN 100 MG/ML SYRINGE 85 MG SUB-Q ×2 (09:11→21:02)
[2022-05-31] MEDS: ATORVASTATIN 10 MG TABLET PO (09:12)
[2022-05-31] MEDS: SERTRALINE HCL 50 MG TABLET 200 MG PO (09:12)
[2022-05-31] MEDS: METOPROLOL SUCCINATE EXT REL 100 MG TABCR 200 MG PO (09:12)
[2022-05-31] MEDS: MONTELUKAST SODIUM 10 MG TABLET PO (09:12)
[2022-05-31] MEDS: AZITHROMYCIN 250 MG TABLET PO (09:12)
[2022-05-31] MEDS: HYDROXYCHLOROQUINE SULFATE 200 MG TABLET 400 MG BY MOUTH (09:13)
[2022-05-31] MEDS: ACETAMINOPHEN 325 MG TABLET 650 MG PO (09:30)
--- NOTE | 2022-05-31 15:36 | PM.IMPN ---
Progress Note: A&P Assessment and Plan (1) Elevated troponin: Code(s): R77.8 - Other specified abnormalities of plasma proteins Status: Acute Plan COPD exacerbation Continue IV steroid, bronchodilator and Azithromycin x 5 days Monitor Elevated troponin NSTEMI vs type II demand on full dose lovenox, aspirin and metoprolol Trend trooponin, ECHO pending cardiology consulted Chornic respiratory failure titrate oxygen Anxiety and Depression Continue home meds HTN titrate home meds with clinical course RA and undiferentiated connective tissue disease continue home meds DVT prophylaxis on full dose lovenox pending cardiology eval Subjective Date/time seen: 05/31/22 15:36 patient seen and examined no overnight events and denies any active chest pain Review of Systems Review of Systems: All systems reviewed & are unremarkable except as noted in HPI and below Exam Narrative: General:?Chronic, nontoxic-appearing female sitting up in bed. Weaned from BiPAP, on nasal cannula. Weight: 85.2 kg.? BMI: 34.4. HEENT:??PERRL, EOMI. Sclera anicteric. Tacky mucous membranes. Neck:??Supple. No JVD or lymphadenopathy. Respiratory: bilateral wheezing Cardiovascular:??Regular rate and rhythm with S1-S2.? Gastrointestinal:??Abdomen is soft, nontender, and nondistended with positive bowel sounds. Skin:??Warm and dry.? No rash or lesions on limited exam. Extremities:??No cyanosis, clubbing, or edema. Radial and pedal pulses intact. Neurological:??Alert.? Cranial nerves 2-12 are grossly intact. No gross focal deficits to casual conversation. Psychiatric:??Pleasant and cooperative with normal mood and affect.? Judgment and insight intact. Objective Data Vital Signs Vital Signs: Vital Signs - 24 hr 05/30/22 16:25 05/30/22 16:15 05/30/22 18:00 Temperature 97.3 F L Pulse Rate 80 80 87 Respiratory Rate 21 H 24 H Blood Pressure 138/65 Pulse Oximetry 100 100 Oxygen Delivery BiPAP Oxygen Flow Rate 05/30/22 20:00 05/31/22 00:00 05/30/22 20:15 Temperature 97.6 F 97.4 F L Pulse Rate 84 73 80 Respiratory Rate 22 H 20 18 Blood Pressure 153/70 H 150/75 H Pulse Oximetry 99 98 Oxygen Delivery Oxygen Flow Rate 05/31/22 02:21 05/30/22 20:00 05/31/22 00:00 Temperature Pulse Rate 66 Respiratory Rate 18 Blood Pressure Pulse Oximetry 96 98 98 Oxygen Delivery Nasal Cannula Nasal Cannula Nasal Cannula Oxygen Flow Rate 3 2 2 05/30/22 20:00 05/30/22 22:00 05/31/22 00:00 Temperature Pulse Rate 88 80 71 Respiratory Rate Blood Pressure Pulse Oximetry Oxygen Delivery Oxygen Flow Rate 05/31/22 02:00 05/31/22 03:45 05/31/22 04:00 Temperature 97.4 F L Pulse Rate 67 78 Respiratory Rate 20 Blood Pressure 150/56 H Pulse Oximetry 97 99 Oxygen Delivery Nasal Cannula Oxygen Flow Rate 2 05/31/22 04:00 05/31/22 06:00 05/31/22 08:44 Temperature Pulse Rate 72 69 78 Respiratory Rate 20 Blood Pressure Pulse Oximetry Oxygen Delivery Oxygen Flow Rate 05/31/22 08:50 05/31/22 08:58 05/31/22 09:12 Temperature Pulse Rate 78 83 81 Respiratory Rate 20 20 Blood Pressure Pulse Oximetry 98 Oxygen Delivery Nasal Cannula Oxygen Flow Rate 3 05/31/22 08:00 05/31/22 08:00 05/31/22 08:00 Temperature 97.9 F Pulse Rate 77 78 Respiratory Rate 20 Blood Pressure 172/77 H Pulse Oximetry 99 98 Oxygen Delivery Nasal Cannula Oxygen Flow Rate 3 05/31/22 10:00 05/31/22 11:28 05/31/22 11:34 Temperature Pulse Rate 84 68 Respiratory Rate 20 Blood Pressure Pulse Oximetry 99 Oxygen Delivery Nasal Cannula Oxygen Flow Rate 3 05/31/22 11:46 05/31/22 12:00 05/31/22 13:56 Temperature 96.8 F L Pulse Rate 72 72 79 Respiratory Rate 20 16 20 Blood Pressure 151/65 H 156/74 H Pulse Oximetry 96 100 Oxygen Delivery Oxygen Flow Rate 05/31/22 13:59 05/31/22 15
[2022-05-31] MEDS: ALPRAZolam (*CRX) 0.125 MG TABLET PO (21:02)
[2022-05-31] MEDS: rOPINIRole HCL 0.5 MG TABLET PO (21:02)
[2022-06-01] VITALS (31 sets, daily range): BP systolic 151–235; BP diastolic 65–148; PULSE 66–115; RESP 16–37; TEMP 35.8–36.3; O2SAT 93–100
[2022-06-01] MEDS: IPRATROPIUM BR 0.02% INH SOLN 0.5 MG/2.5 ML VIAL INHALATION ×6 (03:48→23:47)
[2022-06-01] MEDS: ALBUTEROL SULFATE NEB 2.5 MG/3 ML INH INHALATION ×6 (03:49→23:47)
[2022-06-01 04:55] LABS: Basophils Percent Auto 0.1 % (0.2-1.2); Hematocrit 41.5 % (37.0-47.0); Hemoglobin 13.5 g/dL (12.0-15.0); Immature Granulocyte Absolute 0.06 K/mm3 (0.00-0.031); Immature Granulocyte Percent A 0.5 % (0-0.5); Lymphocytes Absolute Auto 0.31 K/mm3 (0.9-3.2); Lymphocytes Percent Auto 2.7 % (18.3-44.2); Mean Corpuscular HGB Conc 32.5 g/dl (32-36); Mean Corpuscular Hemoglobin 27.9 pg (26-34); Mean Corpuscular Volume 85.7 fl (80-100); Mean Platelet Volume 9.7 fl (7.4-10.4); Monocytes Absolute Auto 0.5 K/mm3 (0.1-0.6); Monocytes Percent Auto 4.3 % (2.6-8.5); Neutrophils Absolute Auto 10.5 K/mm3 (1.3-6.7); Neutrophils Percent Auto 92.4 % (45.5-73.1); Platelet Count Result 178 k/mm3 (150-375); Red Blood Count 4.84 M/mm3 (4.2-5.4); Red Cell Distribution Width 13.6 % (11.5-14.5); White Blood Count 11.3 K/mm3 (4.5-10.0)
[2022-06-01 05:01] LABS: Alanine Aminotransferase 20 U/L (6-35); Albumin Level 4.1 g/dL (3.5-5.1); Alkaline Phosphatase 79 U/L (38-126); Anion Gap 4 mmol/L (8-16); Aspartate Amino Transferase 32 U/L (14-36); Bilirubin,Total 0.4 mg/dL (0.2-1.3); Blood Urea Nitrogen 20 mg/dL (7-17); Calcium 8.9 mg/dL (8.4-10.2); Carbon Dioxide 29 mmol/L (22-30); Chloride 105 mmol/L (98-107); Estimated CRCL calculation 52 ml/min; Estimated Glomerular Filt Rate > 60; Glucose 139 mg/dL (65-110); Potassium 4.4 mmol/L (3.4-5.0); Sodium 138 mmol/L (137-145)
[2022-06-01] MEDS: methylPREDNISolone SOD SUCC 125 MG VIAL 60 MG IV PUSH ×5 (05:07→23:57)
--- NOTE | 2022-06-01 07:44 | PM.CNCAR ---
Assessment and Plan Assessment and plan (1) Elevated troponin: Code(s): R77.8 - Other specified abnormalities of plasma proteins Status: Acute Plan This is a 71-year-old lady with significant COPD admitted over the weekend with clinically what appears to be a COPD exacerbation. No clinical evidence otherwise of an acute coronary event. No ECG evidence of an acute coronary event. No prior history of coronary artery disease. Her troponin levels are reflective of a type 2 demand myocardial infarction. She did have a nuclear stress test a couple of years ago for reasons that she cannot remember with normal results. She also has prior echocardiogram demonstrating normal LV systolic function without wall motion abnormalities and with good LV systolic function. She at this point does not require ischemia testing in my opinion if you have questions regarding this consultation please let me know. Rosendo Galvan MD [facility] History of Present Illness History of Present Illness Consult date/time: 06/01/22 07:44 Reason For Visit: COPD Exacerbation Narrative: This is a 71-year-old woman I am seeing at the request of the hospitalist because of elevation of her troponin levels. She is not known to me prior to this consultation this morning. She was admitted to the hospital over the weekend on Wednesday with shortness of breath and clinically was having a COPD exacerbation. She is well known to have chronic home oxygen dependent lung disease and follows with primary care and pulmonology here at [facility]. She does not indicate that she is known to have any cardiac problems prior to this. She states that she was experiencing significant shortness of breath with a nonproductive cough for a number of days before coming into the hospital. She does at times she says have chest pain describing as a sharp central chest discomfort that tends to occur when she has flare-ups with her difficulty breathing. She has COPD to the point where she is not able to walk very far without having to stop to rest. This is been the case for a number of years and has not changed recently. She is not experiencing orthopnea Mishel PND or accumulating edema. She was seen on admission in the emergency room electrocardiogram shows sinus rhythm with chronic right bundle branch block no acute ischemic abnormalities. Her troponin levels were slightly elevated and as a result of this I have been consulted to see her in consultation. Entering the room to see her this morning she is resting in bed with nasal cannula oxygen upon awakening she offers no other complaints. Review of Systems Constitutional: Constitutional: Reports fatigue Eyes: Eyes: Reports no additional eye complaints ENT: Reports system reviewed and no additional complaints, except as documented Cardiovascular: Cardiovascular: Reports no additional cardiovascular complaints Respiratory: Respiratory: Reports dyspnea and Reports wheezing Gastrointestinal: Gastrointestinal: Reports no additional gastrointestinal complaints Musculoskeletal: Musculoskeletal: Reports arthralgias Integumentary/Breasts: Skin/Breast: Reports system reviewed and no additional complaints, except as docu Neurologic: Reports system reviewed and no additional complaints, except as documented Endocrine: Endocrine: Reports no additional endocrine complaints Hematologic/Lymphatic: Hematologic/Lymphatic: Reports no additional hematologic/lymphatic complaints Allergic/Immunologic: Allergic/Immunologic: Reports no additional allergic/immunologic complaints [facility] Past Medical History Medical History (Updated 05/30/22 @ 22:08 by FALLON WatkinsC) Acute and chronic respiratory failure with hypoxia Anxiety Chronic obstructive pulmonary disease, unspecified Chronic respiratory failure with hypoxia, on home oxygen therapy Depression Generalized osteoarthritis of multiple sites History of tobacco abuse Hoarseness
[2022-06-01] MEDS: BUDESONIDE RESPULE NEB 0.5 MG/2 ML AMP 0.25 MG INHALATION ×2 (07:51→20:07)
[2022-06-01] MEDS: SERTRALINE HCL 50 MG TABLET 200 MG PO (08:31)
[2022-06-01] MEDS: ENOXAPARIN 100 MG/ML SYRINGE 85 MG SUB-Q (08:32)
[2022-06-01] MEDS: ATORVASTATIN 10 MG TABLET PO (08:32)
[2022-06-01] MEDS: ASPIRIN 81 MG ENTERIC TABLET PO (08:32)
[2022-06-01] MEDS: METOPROLOL SUCCINATE EXT REL 100 MG TABCR 200 MG PO (08:32)
[2022-06-01] MEDS: HYDROXYCHLOROQUINE SULFATE 200 MG TABLET 400 MG BY MOUTH (08:32)
[2022-06-01] MEDS: MONTELUKAST SODIUM 10 MG TABLET PO (08:32)
[2022-06-01] MEDS: AZITHROMYCIN 250 MG TABLET PO (08:32)
[2022-06-01] MEDS: UMECLIDINIUM BROMIDE 62.5 MCG ELLIPTA 1 PUFF INHALATION (09:03)
--- NOTE | 2022-06-01 12:06 | PCRCNOTE ---
pt up to bathroom with assistance. RT rounded and found pt in bathroom with physical therapy struggling to keep sats above 87%. extremely SOB with exertion. pt made it back to chair with assistance and recovered on her 3L NC to 92%. persistent expiratory wheezes upon auscultation. UPD treatment started by RT.
[2022-06-01] MEDS: ACETAMINOPHEN 325 MG TABLET 650 MG PO (12:41)
[2022-06-01] MEDS: polyethylene glycoL 3350 17 GM POWD.PACK PO (12:41)
--- NOTE | 2022-06-01 15:10 | PC.NURSE ---
This patient, Ceci Del Cid, was received from [imu] on 06/01/22 at 1500. Patient/family oriented to unit policies and routines. Report from Lyndsay.
--- NOTE | 2022-06-01 17:40 | PM.IMPN ---
Progress Note: A&P Assessment and Plan (1) Elevated troponin: Code(s): R77.8 - Other specified abnormalities of plasma proteins Status: Acute Plan COPD exacerbation Continue IV steroid, bronchodilator and Azithromycin x 5 days Monitor Elevated troponin NSTEMI vs type II demand On full dose lovenox, aspirin and metoprolol Trend troponin, ECHO pending cardiology consulted can DC full dose lovenox and continue to watch today Chornic respiratory failure titrate oxygen Anxiety and Depression Continue home meds HTN titrate home meds with clinical course RA and connective tissue disease continue home meds DVT prophylaxis lovenox Subjective Date/time seen: 06/01/22 17:40 Pt seen and examined by the bedside Pt admitted for copd exacerbation acute on chronic respiratory failure and elevated trop Pt seen by cardiology and had echo Sob appears more respiratory related Review of Systems Review of Systems: no specific complaints All systems reviewed & are unremarkable except as noted in HPI and below Exam Narrative: General:?Chronic Neck:??Supple. No JVD or lymphadenopathy. Respiratory: bilateral wheezing Cardiovascular:??Regular rate and rhythm with S1-S2.? Gastrointestinal:??Abdomen is soft, nontender, and nondistended with positive bowel sounds. Skin:??Warm and dry.? No rash or lesions on limited exam. Extremities:??No cyanosis, clubbing, or edema. Radial and pedal pulses intact. Neurological:??Alert.? Cranial nerves 2-12 are grossly intact. No gross focal deficits to casual conversation. Psychiatric:??Pleasant and cooperative with normal mood and affect.? Judgment and insight intact. Objective Data Vital Signs Vital Signs: Vital Signs - 24 hr 05/31/22 18:00 05/31/22 20:00 05/31/22 20:14 Temperature 36.0 C L Pulse Rate 74 81 88 Respiratory Rate 24 H 20 Blood Pressure 175/82 H Pulse Oximetry 97 Oxygen Delivery Oxygen Flow Rate 05/31/22 20:14 05/31/22 20:30 05/31/22 20:00 Temperature Pulse Rate 88 90 78 Respiratory Rate 20 26 H Blood Pressure Pulse Oximetry 99 Oxygen Delivery Nasal Cannula Oxygen Flow Rate 3 05/31/22 20:00 05/31/22 21:37 05/31/22 23:13 Temperature 36.2 C L Pulse Rate 78 84 78 Respiratory Rate 26 H 20 Blood Pressure 153/81 H Pulse Oximetry 99 98 Oxygen Delivery Nasal Cannula Oxygen Flow Rate 3 05/31/22 23:51 06/01/22 00:00 06/01/22 00:00 Temperature Pulse Rate 88 94 94 Respiratory Rate 22 H 22 H Blood Pressure Pulse Oximetry 98 Oxygen Delivery Nasal Cannula Oxygen Flow Rate 3 06/01/22 03:52 06/01/22 04:00 06/01/22 02:00 Temperature 36.1 C L Pulse Rate 91 72 68 Respiratory Rate 24 H 20 Blood Pressure 151/65 H Pulse Oximetry 97 Oxygen Delivery Oxygen Flow Rate 06/01/22 04:00 06/01/22 04:00 06/01/22 04:05 Temperature Pulse Rate 77 77 91 Respiratory Rate 20 22 H Blood Pressure Pulse Oximetry 97 Oxygen Delivery Nasal Cannula Oxygen Flow Rate 3 06/01/22 05:49 06/01/22 07:55 06/01/22 07:56 Temperature Pulse Rate 68 82 Respiratory Rate 22 H Blood Pressure Pulse Oximetry 96 Oxygen Delivery Nasal Cannula Oxygen Flow Rate 3 06/01/22 07:59 06/01/22 08:14 06/01/22 08:00 Temperature 35.8 C L Pulse Rate 70 87 Respiratory Rate 26 H 22 H Blood Pressure 159/86 H Pulse Oximetry 100 100 Oxygen Delivery Nasal Cannula Oxygen Flow Rate 3 06/01/22 08:00 06/01/22 10:00 06/01/22 11:51 Temperature Pulse Rate 74 67 Respiratory Rate Blood Pressure Pulse Oximetry Oxygen Delivery Nasal Cannula Oxygen Flow Rate 3 06/01/22 11:54 06/01/22 11:40 06/01/22 12:05 Temperature 36.3 C L Pulse Rate 66 79 Respiratory Rate 16 26 H Blood Pressure 154/82 H Pulse Oximetry 99 Oxygen Delivery Nasal Cannula Oxygen Flow Rate 3 06/01/22 12:17 06/01/22 15:16 06/01/22 15:41 Temper
[2022-06-01] MEDS: ALPRAZolam (*CRX) 0.125 MG TABLET PO (18:59)
[2022-06-01] MEDS: hydrALAZINE HCL 20 MG/ML VIAL (20:32)
[2022-06-01] MEDS: rOPINIRole HCL 0.5 MG TABLET PO (20:33)
[2022-06-01] MEDS: LABETALOL HCL INJ 100 MG/20 ML VIAL IV PUSH (21:01)
--- NOTE | 2022-06-01 21:09 | PM.EVENT ---
Event Note Event Note Event Note: 06/01/221999 a rapid response was called. the patient just completed a nebulizer treatment and was in a tripod position with resperations in the 40s and the patient was in a tripod position. solumed was given and another neb treatment was given. the patient was placed on a bipap. chest x ray and abgs ordered, the patient stated that she does not want intubated. her daughter is at the bedside. patient to be transferrred to imu
[2022-06-01 21:17] LABS: Glucose Point of Care 169 mg/dl (65-105)
--- NOTE | 2022-06-01 21:57 | ECHO_ITS ---
Patient Info Name: Ceci Del Cid Age: 71 years : 1950 Gender: Female Ht: 62 in Wt: 190 lbs BSA: 1.98 m2 HR: 68 bpm BP: 151 / 65 mmHg Heart Rhythm: Sinus Rhythm Technical Quality: Fair Exam Date: 06/01/2022 7:49 AM Exam Location: [facility] Card Pulmonary Patient Status: Inpatient Admit Date: 05/30/2022 Staff Ordering Physician: Monika Araujo PA-C [employer] Laborer: Toya Villalta RDCS Attending Provider: Imtiaz Moore MD Referring Physician: Gayle PIRES; Exam Type: CA echo doppler color flow Study Info Indications - elevated troponin Complete two-dimensional, color flow and Doppler transthoracic echocardiogram is performed. Summary 1. Complete two-dimensional, color flow and Doppler transthoracic echocardiogram is performed. 2. Left ventricular hypertrophy with normal systolic function no ischemic wall motion abnormalities. 3. Enlarged left atrium. 4. Mildly calcified mitral valve annulus. 5. Compared with November of 2021 no significant difference. Left Ventricle Left ventricular chamber dimension is normal. Left ventricular systolic function is normal, estimated at 60-65%. There is mild concentric increased left ventricular wall thickness. The left ventricular diastolic function is grade I diastolic dysfunction. Right Ventricle Right ventricular chamber dimension is normal. Left Atria Left atrial chamber dimension is mildly enlarged. Right Atria Right atrial chamber dimension is normal. Aortic Valve The aortic valve is normal. Pulmonic Valve The pulmonic valve is not well visualized. Mitral Valve The mitral valve has normal leaflets. The mitral valve annulus is mildly calcified. Tricuspid Valve The tricuspid valve leaflets are normal. Pericardium/Pleural The pericardium appears normal. Aorta The aortic root size at the sinus of Valsalva is normal. Left Ventricular Outflow Tract Name Value Normal LVOT 2D LVOT Diameter 2.0 cm LVOT Doppler LVOT Peak Gradient 7 mmHg LVOT Mean Gradient 3 mmHg LVOT VTI 23 cm LVOT VTI/AV VTI Ratio 0.7 LVOT Stroke Volume 70 ml LVOT CO 5.6 l/min LVOT CI 2.8 l/min/m2 Pulmonic Valve Name Value Normal RVOT Doppler RVOT Peak Gradient 2 mmHg PV Doppler PV Peak Gradient 5 mmHg Mitral Valve Name Value Normal MV Doppler
[2022-06-01 22:13] LABS: Alveolar/Arterial O2 Gradient 127.5 mmHg; Base Excess ABG 0.4 mEq/l (+/-2.0); Fractional Inspired Oxygen 40 %; HCO3 ABG 29.1 mEq/l (22.0-26.0); Oxygen Saturation ABG 94.8 % (95.0-100.0); Oxyhemoglobin 94.3 % THb (90.0-100.0); PO2 ABG 84.2 mmHg (80.0-100.0); PO2 FiO2 Ratio Arterial Blood 2.11 %; Total Hemoglobin 15.8 g/dL (12.0-18.0)
[2022-06-01 22:16] LABS: pH ABG 7.276 (7.350-7.450)
[2022-06-01 22:17] LABS: Device BIPAP; Modified Allen's Test Pass; PCO2 ABG 63.9 mmHg (35.0-45.0); Site Drawn LEFT RADIAL
[2022-06-01 22:18] LABS: Expiratory Pressure 6 cmH2O; Inspiratory Pressure 12 cmH2O
--- NOTE | 2022-06-01 23:10 | PC.NURSE ---
Patient transferred to IMU room 231 s/p rapid response call. Family at bedside. Report given to RADHA Curran.
[2022-06-01] MEDS: LORazepam INJ (*CRX) 2 MG/ML VIAL 0.5 MG IV PUSH (23:57)
[2022-06-02] VITALS (29 sets, daily range): BP systolic 146–189; BP diastolic 65–97; PULSE 81–112; RESP 26–40; TEMP 36.3–36.6; O2SAT 94–100
[2022-06-02] MEDS: IPRATROPIUM BR 0.02% INH SOLN 0.5 MG/2.5 ML VIAL INHALATION ×5 (03:42→20:19)
[2022-06-02] MEDS: ALBUTEROL SULFATE NEB 2.5 MG/3 ML INH INHALATION ×5 (03:42→20:19)
[2022-06-02 04:23] LABS: Alveolar/Arterial O2 Gradient 123.7 mmHg; Base Excess ABG 1.1 mEq/l (+/-2.0); Carboxyhemoglobin 0.4 % THb (0-2.0); Fractional Inspired Oxygen 40 %; HCO3 ABG 29.1 mEq/l (22.0-26.0); Methemoglobin ABG 0.3 %THb (0-1.5); Oxygen Content ABG 20.3 %vol (16.0-22.0); Oxygen Saturation ABG 96.1 % (95.0-100.0); Oxyhemoglobin 95.5 % THb (90.0-100.0); PO2 ABG 91.9 mmHg (80.0-100.0); Reduced Hemoglobin 3.8 %THb (0-5.0); Total Hemoglobin 15.1 g/dL (12.0-18.0)
[2022-06-02 04:25] LABS: Modified Allen's Test Pass; PCO2 ABG 60.5 mmHg (35.0-45.0); Site Drawn RIGHT RADIAL
[2022-06-02 04:26] LABS: Device BIPAP; Expiratory Pressure 6 cmH2O; Inspiratory Pressure 14 cmH2O
--- NOTE | 2022-06-02 05:11 | P.PNCROSS_ITS ---
Event Note Event Note Event Note: Nursing staff called to tell me the patient was not tolerating BiPAP she was ri pping or BiPAP off. Patient's respiratory rate had climbed into the 40s. The patient was diaphoretic and in distress. The patient was refusing to wear BiPAP. I had been told verbally that the patient was a do not intubate but the code status had not been changed in the patient's chart. Nursing staff had managed to convince the patient to put back on her BiPAP in gave her a dose of her p.r.n. benzodiazepines. When I arrived to the room the patient was resting more comfortably with a respiratory rate of 32. She still has some accessory muscle use. She had diffuse wheezing. She has already got scheduled nebulizers every 4 hours. She denies any chest pain. She is on scheduled steroids with Solu-Medrol 60 mg q.6. A repeat ABG was performed which demonstrated modest improvement in the patient's pH but not much improvement in the patient's pCO2. The patient's BiPAP settings were originally 14/6 with a rate of 20. I adjusted the patient's settings to 15/5 with a rate of 24. ABG results: PH 7.3 pCO2 of 60 PO2 of 91 bicarb of 29 Acute hypercarbic respiratory failure--BiPAP adjustments as above. Repeat ABG at 07:00. If the patient's ABGs improving she may be a candidate for vapotherm and take a break from BiPAP. End of life goals--the patient reiterates that she understands if she cannot breathe on her own and she does not want to be intubated that she knows that she would . She states that she simply wants to be made comfortable. She would not want to be brought back if she could not breathe without a ventilator. Subsequently the patient's code status has been changed to DNR/DNI. 35 minute spent in critical care activities. Due to a high probability of clinically significant, life threatening deterioration, the patient required my highest level of preparedness to intervene emergently and I personally spent this critical care time directly and personally managing the patient. This critical care time included obtaining a history; examining the patient; pulse oximetry; ordering and review of studies; arranging urgent treatment with development of a management plan; evaluation of patient's response to treatment; frequent reassessment; and discussions with other providers. It was exclusive of separately billable procedures and treating other patients and teaching time. Please see Assessment and Plan section and the rest of the note for further information on patient assessment and treatment.
[2022-06-02] MEDS: methylPREDNISolone SOD SUCC 125 MG VIAL 60 MG IV PUSH ×3 (05:34→18:38)
[2022-06-02] MEDS: BUDESONIDE RESPULE NEB 0.5 MG/2 ML AMP 0.25 MG INHALATION (07:00)
[2022-06-02] MEDS: LORazepam INJ (*CRX) 2 MG/ML VIAL 0.5 MG IV PUSH ×3 (07:25→21:34)
[2022-06-02] MEDS: UMECLIDINIUM BROMIDE 62.5 MCG ELLIPTA 1 PUFF INHALATION (08:00)
[2022-06-02 08:08] LABS: Alveolar/Arterial O2 Gradient 119.7 mmHg; Base Excess ABG 0.5 mEq/l (+/-2.0); Carboxyhemoglobin 0.2 % THb (0-2.0); Fractional Inspired Oxygen 40 %; Methemoglobin ABG 0.3 %THb (0-1.5); Oxygen Content ABG 19.7 %vol (16.0-22.0); Oxygen Saturation ABG 96.8 % (95.0-100.0); Oxyhemoglobin 96.3 % THb (90.0-100.0); PCO2 ABG 57.5 mmHg (35.0-45.0); PO2 ABG 99.4 mmHg (80.0-100.0); PO2 FiO2 Ratio Arterial Blood 2.49 %; Reduced Hemoglobin 3.2 %THb (0-5.0); Site Drawn RIGHT RADIAL; Total Hemoglobin 14.5 g/dL (12.0-18.0); pH ABG 7.306 (7.350-7.450)
[2022-06-02 08:09] LABS: Device BIPAP; Modified Allen's Test Pass
[2022-06-02 08:10] LABS: Expiratory Pressure 5 cmH2O; Inspiratory Pressure 15 cmH2O
--- NOTE | 2022-06-02 11:37 | PM.IMPN ---
Progress Note: A&P Assessment and Plan (1) Elevated troponin: Code(s): R77.8 - Other specified abnormalities of plasma proteins Status: Acute Plan COPD exacerbation known history of severe COPD sees pulmology Continue IV steroid, bronchodilator and Azithromycin x 5 days oral and IV rocephin Pt condition worsened overnite Pt on bipap today Order cxr and consult pulmonology Elevated troponin Pt had troponin trended and ECHO elevate trop appears more likley secondary to acute respiratory failure than cardiac in nature cardiology consulted can DC full dose lovenox and continue to watch today Acute on Chronic respiratory failure pt usually on 2 liters of oxygen at baseline Anxiety and Depression Continue home medications HTN Continue home meds RA and connective tissue disease continue home meds DVT prophylaxis lovenox Subjective Date/time seen: 06/02/22 11:37 Pt seen and examined by the bedside Pt admitted for copd exacerbation, acute on chronic respiratory failure and elevated trop Pt was on 2 liters of oxygen yesterday, unfortunately pt breathing worsened pt started on bipap overnight. Long discussion with daughter at he bedside pt sees Dr Simms pulmonology pt has severe COPD uses 2 liters of oxygen and nebulizers regularly at home. I will consult pulmonology and order CXR today continue present care. Review of Systems Review of Systems: Persistent COPD All systems reviewed & are unremarkable except as noted in HPI and below Exam Narrative: General:?Pt wearing BIPAP Neck:??Supple. No JVD or lymphadenopathy. Respiratory: bilateral wheezing Cardiovascular:??Regular rate and rhythm with S1-S2.? Gastrointestinal:??Abdomen is soft, nontender, and nondistended with positive bowel sounds. Skin:??Warm and dry.? No rash or lesions on limited exam. Extremities:??No cyanosis, clubbing, or edema. Radial and pedal pulses intact. Neurological:??Alert.? Cranial nerves 2-12 are grossly intact. No gross focal deficits to casual conversation. Psychiatric:??Pleasant and cooperative with normal mood and affect.? Judgment and insight intact. Objective Data Vital Signs Vital Signs: Vital Signs - 24 hr 06/01/22 11:51 06/01/22 11:54 06/01/22 11:40 Temperature 36.3 C L Pulse Rate 66 Respiratory Rate 16 Blood Pressure 154/82 H Pulse Oximetry 99 Oxygen Delivery Nasal Cannula Nasal Cannula Oxygen Flow Rate 3 3 Fraction of Inspired Oxygen 06/01/22 12:05 06/01/22 12:17 06/01/22 15:16 Temperature Pulse Rate 79 85 Respiratory Rate 26 H 24 H Blood Pressure Pulse Oximetry 96 Oxygen Delivery Nasal Cannula Oxygen Flow Rate 2 Fraction of Inspired Oxygen 06/01/22 15:41 06/01/22 15:56 06/01/22 16:00 Temperature 36.2 C L Pulse Rate 81 89 73 Respiratory Rate 20 20 20 Blood Pressure 160/77 H Pulse Oximetry 96 Oxygen Delivery Oxygen Flow Rate Fraction of Inspired Oxygen 06/01/22 19:07 06/01/22 20:06 06/01/22 20:10 Temperature 36.1 C L Pulse Rate 71 75 Respiratory Rate 20 22 H Blood Pressure 192/83 H Pulse Oximetry 93 98 Oxygen Delivery High Flow Therapy with Na Oxygen Flow Rate 6 Fraction of Inspired Oxygen 06/01/22 20:17 06/01/22 20:30 06/01/22 21:00 Temperature Pulse Rate 75 83 114 H Respiratory Rate 22 H 25 H 28 H Blood Pressure 235/148 H Pulse Oximetry 96 93 Oxygen Delivery Nasal Cannula Oxygen Flow Rate 6 Fraction of Inspired Oxygen 06/01/22 20:00 06/01/22 20:00 06/01/22 21:24 Temperature 36.1 C L Pulse Rate 114 H 114 H 107 H Respiratory Rate 28 H 28 H 37 H Blood Pressure 235/148 H Pulse Oximetry 93 93 94 Oxygen Delivery High Flow Therapy with Na High Flow Therapy with Na BiPAP Oxygen Flow Rate 6 6 Fraction of Inspired Oxygen 06/01/22 21:25 06/01/22 23:07 06/01/22 23:11 Temperature 36.1 C L Pulse Rate 115 H 97 100 Respiratory Rate 32 H 36 H Blood Pressure 1
[2022-06-02] MEDS: ENOXAPARIN 40 MG/0.4 ML SYRINGE SUB-Q (12:23)
--- NOTE | 2022-06-02 12:32 | PM.CNPUL ---
Assessment and Plan Assessment and plan (1) COPD exacerbation: Code(s): J44.1 - Chronic obstructive pulmonary disease with (acute) exacerbation Status: Acute Assessment and Plan: Patient with gold grade 3 group E COPD a now with an acute exacerbation with hypoxemic and hypercarbic respiratory failure requiring noninvasive ventilation. CT angiogram showed no pulmonary embolism I will continue albuterol 2.5 mg nebs q.4 hours, ipratropium 0.5 mg nebs Q 4 hours, budesonide 0.5 mg nebulized b.i.d., Solu-Medrol 60 Q 6 at this time. patient is afebrile, she has a leukocytosis on 06/01/2022 and a chest x-ray today with patchy bibasilar infiltrates left greater than right. Sputum culture shows normal rusty. since she is deteriorating quickly and is DNR, I will change her ceftriaxone and azithromycin to vancomycin, Levaquin and imipenem to broadly cover her for healthcare associated pneumonia. I will repeat covid, influenza and RSV swab (2) Acute on chronic respiratory failure with hypoxia and hypercapnia: Code(s): J96.21 - Acute and chronic respiratory failure with hypoxia; J96.22 - Acute and chronic respiratory failure with hypercapnia Status: Acute Assessment and Plan: patient has acute on chronic Hypoxic and hypercarbic respiratory failure from her COPD. 06/02 I changed her to noninvasive ventilator with the AVAPS mode set rate 20, tidal volume 500, rest EPAP 5, minimal inspiratory pressure 6, maximal inspiratory pressure 25, inspiratory time 0.8, rise of 1, 40% and her sats were 95%. She said this was slightly more comfortable. She is DNR currently she is in respiratory distress with a rate of 40, mottled skin and I have told the daughter that she should have her family come visit the patient as soon as possible because she may deteriorate quickly at this point. The daughter understands and will make arrangements for the patient's to come visit and the patient's 2nd daughter is on her way from [place]. Will follow with you History of Present Illness History of Present Illness Consult date: 06/02/22 Chief complaint: COPD Exacerbation Narrative: 06/02/2022: This is a new pulmonary consult for COPD exacerbation with respiratory failure. 71-year-old with a history of COPD, grade 2 diastolic dysfunction, hypertension. Regarding her COPD, 100 pack year history of smoking quit in 2015, FEV1 37% predicted on 02/19/2020, 2 L at night and 2-3 L during the day. Last office visit note on 05/11/2022 the patient could not inhale strongly enough to get her medication and she was switched to triple nebulization therapy. The patient presented to the hospital on 05/30 with shortness of breath, wheezing, cough with phlegm production. CT angiogram showed no pulmonary embolism but a new 9 mm calcified nodule in the right upper lobe compared to 12/03/2021. The patient has severe apical predominant panlobular emphysema. She was treated for COPD exacerbation with steroids, bronchodilators and ceftriaxone and azithromycin. She is DNR On 06/01/2021 the patient had worsening shortness of breath requiring BiPAP and was transferred to the IMU where she has remained on BiPAP. 06/02 When I enter the room patient was in respiratory distress breathing 40 times a minute, her skin was mottled, she was on BiPAP set rate 24 breathing 40/min, her tidal volume was 436 inspiratory time 1, rise of 540% with sats of 97%. The patient could only speak 1 word sentences. The patient was uncomfortable and I changed her to noninvasive ventilator with the AVAPS mode set rate 20, tidal volume 500, rest EPAP 5, minimal inspiratory pressure 6, maximal inspiratory pressure 25, inspiratory time 0.8, rise of 1, 40% and her sats were 95%. She said this was slightly more comfortable. DATA: EXAMINATION: CTA chest PE protocol DATE: 05/31/2022 13:03 CDT INDICATION: Hypoxia and shortness of breath. E
--- NOTE | 2022-06-02 12:55 | PCOTNOTE ---
Per RN, Patient is not appropriate for therapy services this date. Patient is on BiPap and needs testing.
[2022-06-02 17:00] LABS: Influenza A QL RT-PCR Negative (Negative); Influenza B QL RT-PCR Negative (Negative); RSV RNA, RT-PCR Negative (Negative); SARS-CoV-2 RNA PCR Negative
[2022-06-02] MEDS: SODIUM CHLORIDE 0.9% IV 1,000 ML 70 ML IV CONT (20:13)
[2022-06-02] MEDS: BUDESONIDE RESPULE NEB 0.5 MG/2 ML AMP INHALATION (20:18)
--- NOTE | 2022-06-02 21:36 | PC.NURSE ---
Pt's family member voiced concerns regarding pt's condition and respiratory status. Family wanting to stay the night and refusing to leave after visiting hours. Updated charge RNs Fitz and Noemí. Got permission for one family member to stay overnight. Family agreeable.
[2022-06-03] VITALS (26 sets, daily range): BP systolic 120–152; BP diastolic 56–81; PULSE 90–138; RESP 18–44; TEMP 36.3–37.1; O2SAT 95–99
[2022-06-03] MEDS: ALBUTEROL SULFATE NEB 2.5 MG/3 ML INH INHALATION ×3 (00:25→10:03)
[2022-06-03] MEDS: IPRATROPIUM BR 0.02% INH SOLN 0.5 MG/2.5 ML VIAL INHALATION ×5 (00:25→17:05)
[2022-06-03] MEDS: methylPREDNISolone SOD SUCC 125 MG VIAL 60 MG IV PUSH ×2 (00:30→07:25)
[2022-06-03] MEDS: LORazepam INJ (*CRX) 2 MG/ML VIAL 0.5 MG IV PUSH ×3 (04:10→16:30)
[2022-06-03 05:19] LABS: Basophils Percent Auto 0.3 % (0.2-1.2); Hematocrit 41.9 % (37.0-47.0); Hemoglobin 13.3 g/dL (12.0-15.0); Immature Granulocyte Absolute 0.07 K/mm3 (0.00-0.031); Immature Granulocyte Percent A 0.9 % (0-0.5); Lymphocytes Absolute Auto 0.37 K/mm3 (0.9-3.2); Lymphocytes Percent Auto 4.7 % (18.3-44.2); Mean Corpuscular HGB Conc 31.7 g/dl (32-36); Mean Corpuscular Hemoglobin 27.3 pg (26-34); Mean Platelet Volume 9.7 fl (7.4-10.4); Monocytes Absolute Auto 0.6 K/mm3 (0.1-0.6); Monocytes Percent Auto 7.3 % (2.6-8.5); Neutrophils Absolute Auto 6.9 K/mm3 (1.3-6.7); Neutrophils Percent Auto 86.8 % (45.5-73.1); Platelet Count Result 129 k/mm3 (150-375); Red Blood Count 4.87 M/mm3 (4.2-5.4); Red Cell Distribution Width 14.1 % (11.5-14.5)
[2022-06-03 05:29] LABS: Anion Gap 7 mmol/L (8-16); Blood Urea Nitrogen 26 mg/dL (7-17); Calcium 8.1 mg/dL (8.4-10.2); Carbon Dioxide 27 mmol/L (22-30); Chloride 106 mmol/L (98-107); Estimated CRCL calculation 47 ml/min; Estimated Glomerular Filt Rate 55; Glucose 132 mg/dL (65-110); Potassium 4.9 mmol/L (3.4-5.0); Sodium 140 mmol/L (137-145)
--- NOTE | 2022-06-03 08:42 | PCOTNOTE ---
Per RN, Patient not to be seen due to condition. No therapy services.
[2022-06-03] MEDS: SODIUM CHLORIDE 0.9% IV 1,000 ML 70 ML IV CONT (09:49)
[2022-06-03] MEDS: BUDESONIDE RESPULE NEB 0.5 MG/2 ML AMP INHALATION (10:03)
--- NOTE | 2022-06-03 10:19 | PM.PNPUL ---
Progress Note: A&P Assessment and Plan (1) COPD exacerbation: Code(s): J44.1 - Chronic obstructive pulmonary disease with (acute) exacerbation Status: Acute Assessment and Plan: Patient with gold grade 3 group E COPD Regarding her COPD, 100 pack year history of smoking quit in 2015, FEV1 37% predicted on 02/19/2020 with hyperinflation, 2 L at night and 2-3 L during the day.? severe apical predominant panlobular emphysema on CT scan from 05/31/2022 and moderate apical predominant panlobular emphysema noted on for CT scan of the chest in our system from 06/25/2009. Last pulmonary office visit note on 05/11/2022 the patient could not inhale strongly enough to get her medication and she was switched to triple nebulization therapy with brovona, yupelri and budesonide. When she is feeling well she can walk a few steps and then has to stop for dyspnea on exertion. CAT score 31. Now with an acute exacerbation with hypoxemic and hypercarbic respiratory failure requiring noninvasive ventilation. CT angiogram showed no pulmonary embolism. Received Levaquin on 05/30, received azithromycin from 05/30 to 06/01, received ceftriaxone on 06/02. I will continue albuterol 2.5 mg nebs q.4 hours, ipratropium 0.5 mg nebs Q 4 hours, budesonide 0.5 mg nebulized b.i.d., Solu-Medrol 60 Q 6 at this time. patient is afebrile, she has a leukocytosis on 06/01/2022 and a chest x-ray today with patchy bibasilar infiltrates left greater than right. Sputum culture shows normal rusty. since she is deteriorating quickly and is DNR, I will change her ceftriaxone and azithromycin to vancomycin, Levaquin and imipenem to broadly cover her for healthcare associated pneumonia. I will repeat covid, influenza and RSV swab 06/03 The patient is resting and follows commands and in less respiratory distress. She has expiratory wheezes but better air movement today. white blood cell count 8.0. Repeat covid, influenza and RSV swab on 06/02 negative although there was a report of a specimen sent incorrectly to the lab that was covid positive (per nurse report and not documented in EMR). I will repeat covid, RSV and influenza swab today. Plan: I will continue albuterol 2.5 mg nebs q.4 hours, ipratropium 0.5 mg nebs Q 4 hours, budesonide 0.5 mg nebulized b.i.d., decrease solu-Medrol from 60 to 40 Q 6 at this time. continue vancomycin, Levaquin and imipenem all day 2. (2) Acute on chronic respiratory failure with hypoxia and hypercapnia: Code(s): J96.21 - Acute and chronic respiratory failure with hypoxia; J96.22 - Acute and chronic respiratory failure with hypercapnia Status: Acute Assessment and Plan: patient has acute on chronic Hypoxic and hypercarbic respiratory failure from her COPD. 06/02 I changed her to noninvasive ventilator with the AVAPS mode set rate 20, tidal volume 500, rest EPAP 5, minimal inspiratory pressure 6, maximal inspiratory pressure 25, inspiratory time 0.8, rise of 1, 40% and her sats were 95%. She said this was slightly more comfortable. She is DNR currently she is in respiratory distress with a rate of 40, mottled skin and I have told the daughter that she should have her family come visit the patient as soon as possible because she may deteriorate quickly at this point. The daughter understands and will make arrangements for the patient's to come visit and the patient's 2nd daughter is on her way from [place]. 06/03 patient required continuous noninvasive ventilation overnight and remains on the noninvasive ventilator. When she was taken off for 1 or 2 minutes yesterday she gasps for air. Currently on the AVAPS mode 40% her saturations are 99% and I decreased her to 35%. She is not mottled today. her respiratory rate has improved to the low 20s today. I spoke to the daughter from [place] at the bedside. Will try to take the patient off of continuous noninvasive ventilation for brief amounts of time so that
--- NOTE | 2022-06-03 10:25 | PM.IMPN ---
Progress Note: A&P Assessment and Plan (1) Elevated troponin: Code(s): R77.8 - Other specified abnormalities of plasma proteins Status: Acute Plan # acute on chronic hypoxic hypercapnic resp failure: usualy on 2 l oxygen at baseline. currently on bipap avaps mode. coughing with thick expectoration. tachypenic in distress. check abg, cxr stat. ativan iv. iv metoprolol one time and prn for tachycardia. did not receive oral metoprolol home dosage yesterday. CTA neg for PE. RUL new 9 mm nodulew ith peripheral calcification suspiciuos for malignancy. fu low dose ct chest or PET CT in future. smaller satellite noduels int eh right upper lobe measuring 3 mm or less sputum cultue with growht of normal oropharyngeal rusty. change albuteorl to xoponex # COPD exacerbation known history of severe COPD sees pulmology Continue IV steroid, bronchodilator and Azithromycin x 5 days oral and IV rocephin Pt condition worsened Pt on bipap. may transition to nc # Elevated troponin Pt had troponin trended and ECHO elevate trop appears more likley secondary to acute respiratory failure than cardiac in nature cardiology consulted can DC full dose lovenox and continue to watch today # Anxiety and Depression Continue home medications # HTN Continue home meds # RA and connective tissue disease and hence immunosuppressed status continue home meds # DVT prophylaxis lovenox Subjective Date/time seen: 06/03/22 10:25 Interval history: patient sob and tahypenic, on bipap avaps mode since wednesday. hypercapnic resp failure. ivf stared yesterday. on torre catheter. family at [facility]. discussed with respiratory and RN. discussed with family. patient is DNR DNI Review of Systems Review of Systems: All systems reviewed & are unremarkable except as noted in HPI and below Exam Narrative: General:?Pt wearing BIPAP , tachypneic Neck:??Supple. No JVD or lymphadenopathy. Respiratory: bilateral rhonchi, coarse breath sounds, Cardiovascular:??tachycardic, regular rate, S1-S2.? Gastrointestinal:??Abdomen is soft, nontender, and nondistended with positive bowel sounds. Skin:??Warm and dry.? No rash or lesions on limited exam. Extremities:??No cyanosis, clubbing, or edema. Radial and pedal pulses intact. Neurological:??Alert.? Cranial nerves 2-12 are grossly intact. moving all extremities Psychiatric:??anxious looking, Objective Data Vital Signs Vital Signs: Vital Signs - 24 hr 06/02/22 11:00 06/02/22 11:00 06/02/22 11:10 Temperature Pulse Rate 96 96 88 Respiratory Rate 29 H 29 H 28 H Blood Pressure Pulse Oximetry 97 Oxygen Delivery BiPAP Fraction of Inspired Oxygen 06/02/22 12:15 06/02/22 12:00 06/02/22 15:56 Temperature 97.9 F Pulse Rate 97 110 H 81 Respiratory Rate 30 H 30 H 29 H Blood Pressure 189/95 H Pulse Oximetry 96 96 99 Oxygen Delivery BiPAP BiPAP Fraction of Inspired Oxygen 06/02/22 15:56 06/02/22 12:15 06/02/22 12:15 Temperature Pulse Rate 81 112 H 112 H Respiratory Rate 29 H 36 H Blood Pressure Pulse Oximetry Oxygen Delivery Fraction of Inspired Oxygen 06/02/22 14:00 06/02/22 16:00 06/02/22 16:50 Temperature 97.9 F Pulse Rate 83 87 90 Respiratory Rate 26 H 30 H Blood Pressure 149/65 H 154/75 H Pulse Oximetry 100 Oxygen Delivery Fraction of Inspired Oxygen 06/02/22 16:00 06/02/22 16:00 06/02/22 18:00 Temperature Pulse Rate 88 87 82 Respiratory Rate Blood Pressure Pulse Oximetry Oxygen Delivery Fraction of Inspired Oxygen 40 06/02/22 20:20 06/02/22 20:25 06/02/22 20:39 Temperature Pulse Rate 90 92 87 Respiratory Rate 37 H 37 H 32 H Blood Pressure Pulse Oximetry 94 Oxygen Delivery BiPAP Fraction of Inspired Oxygen 06/02/22 20:00 06/02/22 20:00 06/03/22 00:25 Temperature 97.8 F Pulse Rate 96 101 H Respiratory Rate 37 H 33 H Blood Pressure 151/89 H Pulse Oximetry 98 98 Oxyg
[2022-06-03 10:39] LABS: Base Excess ABG -1.6 mEq/l (+/-2.0); Carboxyhemoglobin 0.1 % THb (0-2.0); Device NON-INVASIVE VENT; Fractional Inspired Oxygen 35 %; HCO3 ABG 25.4 mEq/l (22.0-26.0); Methemoglobin ABG 0.2 %THb (0-1.5); Modified Allen's Test Pass; Oxygen Content ABG 18.7 %vol (16.0-22.0); Oxygen Saturation ABG 96.8 % (95.0-100.0); PCO2 ABG 52.4 mmHg (35.0-45.0); PO2 ABG 98.6 mmHg (80.0-100.0); PO2 FiO2 Ratio Arterial Blood 2.82 %; Reduced Hemoglobin 3.7 %THb (0-5.0); Site Drawn RIGHT RADIAL; Total Hemoglobin 13.8 g/dL (12.0-18.0); pH ABG 7.304 (7.350-7.450)
[2022-06-03 10:40] LABS: Non-Invasive Expiratory Pressure 5 CMH2O; Non-Invasive Vent Rate 20 /MIN
[2022-06-03 10:52] LABS: Influenza A QL RT-PCR Negative (Negative); Influenza B QL RT-PCR Negative (Negative); RSV RNA, RT-PCR Negative (Negative); SARS-CoV-2 RNA PCR Negative
[2022-06-03 11:04] LABS: NT Pro B Type Natriuretic Pept 5660 pg/mL (19.9-100)
--- NOTE | 2022-06-03 11:23 | PCPTNOTE ---
The patient treatment was not able to be completed today. RN requests to hold therapy for today due to change in medical condition. Will plan to continue treatment per plan of care.
[2022-06-03 11:34] LABS: Appearance Urine Cloudy (Clear); Bacteria Urine None Seen /hpf; Bilirubin Urine Negative (Negative); Blood Urine 3+ (Negative); Color Urine Dark Yellow (Yellow); Glucose Urine UA Negative (Negative); Ketones Urine 1+ mg/dL (Negative); Leukocyte Esterase Ur 1+ LEU/UL (Negative); Need Manual Microscopic Reviewed; Nitrate Urine Negative (Negative); Protein Urine 2+ mg/dL (Negative); RBC Urine >100 /hpf (0-2); Specific Grav Ur 1.023 (1.001-1.035); Squamous Epithelial Cell Urine Occasional /hpf (Few); pH Urine 5.5 (5.0-9.0)
[2022-06-03 11:35] LABS: Add Urine Microscopic? YES
[2022-06-03] MEDS: methylPREDNISolone SOD SUCC 40 MG VIAL IV PUSH (12:54)
[2022-06-03] MEDS: ENOXAPARIN 40 MG/0.4 ML SYRINGE SUB-Q (13:00)
--- NOTE | 2022-06-03 16:36 | PC.NURSE ---
1130- dr. guillen had conference with spouse and daughters and then talked with pt about treatment/ care
--- NOTE | 2022-06-03 16:38 | PC.NURSE ---
consult for hospice- [facility] nurse at bedside and spoke with family
--- NOTE | 2022-06-03 18:02 | PM.IMHP ---
H&P: HPI History of Present Illness Date/Time: 06/03/22 18:02 Chief Complaint: uncontrolled dyspnea Review of Systems Review of Systems: ROS unobtainable: Yes unobtainable due to medical condition [facility] Past Medical History Medical History Acute and chronic respiratory failure with hypoxia Anxiety Chronic obstructive pulmonary disease, unspecified Chronic respiratory failure with hypoxia, on home oxygen therapy Depression Generalized osteoarthritis of multiple sites History of tobacco abuse Hoarseness Hypertension Osteoarthritis of left hip Rheumatoid arthritis 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) Undifferentiated connective tissue disease (~2009) Urinary incontinence Vision changes Surgical History Surgical History History of ankle surgery Left ORIF History of carpal tunnel release History of cholecystectomy 09/22/2013 History of hemorrhoidectomy Hx of bladder repair surgery Hx of total hysterectomy Family History Family History Father Diabetes mellitus Hypertension Malignant neoplasm of prostate Family history of heart disease in male family member before age 55 Family history of cardiovascular disease Family history of malignant neoplasm Mother Family history of primary malignant neoplasm of liver Sibling Malignant neoplasm of prostate Family history of lung cancer Family history of heart disease in male family member before age 55 Family history of cardiovascular disease Family history of chronic obstructive pulmonary disease Other Arthritis Depression Heart disease High cholesterol Social History Social History (Updated 06/03/22 @ 18:04 by Jose Muñoz MD) Social History: Surrogate medical decision maker: Iraj Sofiaigg, spouse. Code status: DNR Smoking packs per day: 2 Smoking cigarettes per day: 40.0 Years smoked: 50 Smoking pack-years: 100.00 Smoking status: Former smoker Tobacco type: cigarettes Second hand tobacco smoke exposure: No Smoking end date: 03/15/15 Alcohol intake: current Alcohol use details: 2 drinks of hard liquor consumed occasionally. Substance use: current Substance use type: marijuana Other substance usage details: edibles for relaxation, couple times a month Lack of Transportation: No Lack of Food: Never True Current Housing: I Have Housing Concerned About Future Housing: No Difficulty Paying Gas/Electric Bills: No Difficulty Paying for Meds: No Currently Unemployed: No Education: High School Diploma/GED Difficulty w/ Childcare or Family Care: No Additional living arrangements comments: Lives with spouse in [place]. Spiritual care concerns: No Meds Home Medications and Allergies Home Medications Medication Instructions Recorded Confirmed Type metoprolol succinate 200 mg 200 mg PO DAILY #90 tabs 10/24/21 05/30/22 Rx tablet,extended release 24 hr atorvastatin 10 mg tablet 10 mg PO DAILY #90 tabs 01/06/22 05/30/22 Rx montelukast 10 mg tablet 10 mg PO DAILY #90 tabs 02/20/22 05/30/22 Rx sertraline 100 mg tablet 200 mg PO DAILY #180 tabs 03/09/22 05/30/22 Rx hydroxychloroquine 200 mg tablet See Rx Instructions .Route 03/30/22 05/30/22 Rx .COMPLEX #180 tabs Yupelri 175 mcg/3 mL solution for 175 mcg (3 mL) inhalation DAILY 05/11/22 05/30/22 Rx nebulization (revefenacin) #90 mL albuterol sulfate 2.5 mg/3 mL 2.5 mg (3 mL) inhalation DAILY PRN 05/11/22 05/30/22 Rx (0.083 %) solution for nebulization shortness of breath or wheezing #90 mL arformoterol 15 mcg/2 mL solution 2 ml inhalation BID #120 mL 05/11/22 05/30/22 Rx for nebulization (Brovana) budesonide 0.25 mg/2 mL suspension 0.25 mg (2 mL) inhalation BID #120 05/11/22 05/30/22 Rx for nebuli
--- NOTE | 2022-06-03 18:08 | PM.DS ---
DS: Admitting Diagnosis Discharge Date 06/03/2022 Admitting Diagnosis Shortness of breath DS: Discharge Diagnosis Discharge Diagnosis (1) Palliative care encounter: Code(s): Z51.5 - Encounter for palliative care Status: Acute (2) Acute on chronic respiratory failure with hypoxia and hypercapnia: Code(s): J96.21 - Acute and chronic respiratory failure with hypoxia; J96.22 - Acute and chronic respiratory failure with hypercapnia Status: Acute (3) COPD exacerbation: Code(s): J44.1 - Chronic obstructive pulmonary disease with (acute) exacerbation Status: Acute (4) Undifferentiated connective tissue disease: Onset Date: ~2009 Code(s): M35.9 - Systemic involvement of connective tissue, unspecified Status: Acute (5) PLMD (periodic limb movement disorder): Code(s): G47.61 - Periodic limb movement disorder Status: Acute (6) Generalized osteoarthritis of multiple sites: Code(s): M15.9 - Polyosteoarthritis, unspecified Status: Acute (7) Hypertension: Qualifiers: Hypertension type: essential hypertension Qualified Code(s): I10 - Essential (primary) hypertension Code(s): I10 - Essential (primary) hypertension Status: Acute (8) Pulmonary nodule: Code(s): R91.1 - Solitary pulmonary nodule Status: Acute DS: Summary Hospital Course Hospital Course: # acute on chronic hypoxic hypercapnic resp failure: usualy on 2 l oxygen at baseline. currently on bipap avaps mode. coughing with thick expectoration. tachypenic in distress. check abg, cxr stat. ativan iv. iv metoprolol one time and prn for tachycardia. did not receive oral metoprolol home dosage yesterday. CTA neg for PE. RUL new 9 mm nodulew ith peripheral calcification suspiciuos for malignancy. fu low dose ct chest or PET CT in future. smaller satellite noduels int eh right upper lobe measuring 3 mm or less sputum cultue with growht of normal oropharyngeal rusty. change albuteorl to xoponex Has underlying end-stage COPD. With ongoing distress and worsening respiratory status hospice conversation was initiated. Family eventually opted for hospice and was transferred to inpatient hospice care. # COPD exacerbation known history of severe COPD sees pulmology Continue IV steroid, bronchodilator and Azithromycin x 5 days oral and IV rocephin Pt condition worsened Pt on bipap. may transition to nc. Transition to hospice with worsening respiratory status # Elevated troponin Pt had troponin trended and ECHO elevate trop appears more likley secondary to acute respiratory failure than cardiac in nature? cardiology consulted can DC full dose lovenox and continue to watch # Anxiety and Depression Continue home medications # HTN Continue home meds # RA and connective tissue disease and hence immunosuppressed status continue home meds # DVT prophylaxis lovenox? Time Spent with Patient Time attestation: Total time spent providing and/or coordinating discharge services: 45 minutes Exam Narrative: General:?Pt wearing BIPAP , tachypneic Neck:??Supple. No JVD or lymphadenopathy. Respiratory: bilateral rhonchi, coarse breath sounds, tachypneic Cardiovascular:??tachycardic, regular rate, S1-S2.? Gastrointestinal:??Abdomen is soft, nontender, and nondistended with positive bowel sounds. Skin:??Warm and dry.? No rash or lesions on limited exam. Extremities:??No cyanosis, clubbing, or edema. Radial and pedal pulses intact. Neurological:??Alert.? Cranial nerves 2-12 are grossly intact. moving all extremities Psychiatric:??anxious looking, DS: Data Data Completed and Pending Labs on day of discharge: Labs from last 24 hours 06/03/22 06/03/22 06/03/22 11:00 10:32 09:26 WBC RBC Hgb Hct MCV MCH MCHC RDW Plt Count MPV Immature Gran % (Auto) Neut % (Auto) Lymph % (Auto) [place] % (Auto) Eos % (Auto) Baso % (Auto) Lymp
--- NOTE | 2022-06-03 18:15 | PC.NURSE ---
pt discharged to hospice care- family at bedside
== END 2022-06-03 18:08 | disposition hospice, home (50) | DRG 190 ==
LOC: ANHED 13:21 → ANHIMU 15:04 → ANH3MEDSUR 06-01 14:57 → ANHIMU 06-01 23:09
PROVIDERS: Family Medicine; Internal Medicine; Internal Medicine Pulmonary Disease; Nurse Practitioner; Physician Assistant; Admitting Provider Internal Medicine; Emergency Provider Emergency Medicine; PCP Family Medicine; Visit Provider Internal Medicine
DX: J44.1 Chronic obstructive pulmonary disease with (acute) exacerbation (principal); J96.21 Acute and chronic respiratory failure with hypoxia; J96.22 Acute and chronic respiratory failure with hypercapnia; I10 Essential (primary) hypertension; M05.79 Rheumatoid arthritis with rheumatoid factor of multiple sites without organ or systems involvement; Z66 Do not resuscitate; Z51.5 Encounter for palliative care; G47.61 Periodic limb movement disorder; M15.9 Polyosteoarthritis, unspecified; R91.1 Solitary pulmonary nodule; F41.9 Anxiety disorder, unspecified; F32.A Depression, unspecified; Z20.822 Contact with and (suspected) exposure to COVID-19
CPT/HCPCS: 36415; 36600; 71045; 71275; 80048; 80053; 81001; 82375; 82805; 82948; 83050; 83735; 83880; 84484; 85025; 85027; 85610; 85730; 87070; 87081; 87086; 87205; 87637; 93005; 93306; 94002; 94640; 94660; 97161; 97165; 99285; A9270; J0131; J0360; J0696; J0743; J1650; J1940; J1956; J2060; J2920; J2930; J3370; J7030; Q9967

== ENCOUNTER 2022-06-03 18:09 | HOS | payer OTHER, MEDICARE, SELFPAY ==
--- NOTE | 2022-06-03 18:02 | HP_ITS ---
HPI: Admitted to acute inpatient status with dyspnea, copd exacerbation. 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 Despite steroids and bronchodilators, she continued to decline and was requiring bipap. She and family opted for comfort care due to her severe COPD, likely CA dx, and uncontrolled dyspnea and discomfort. Exam: Drowsy but arouses to voice and touch Sclerae nonicteric, oral mucosa pink and moist Neck w/o JVD Chest CTA, NL effort Heart RR, no murmur Abd BS hypoactive, soft, nontender Extr no edema MS no gross deformities to visual inspection Neuro CN symmetric to visual inspection. This report was recreated on June 04, 2022. Original report was signed by Jose Muñoz MD at 06/04/22 194. Report was taken back to draft via the [employer] in order for the provider to add the physical exam. H&P: HPI History of Present Illness Date/Time: 06/03/22 18:02 Chief Complaint: uncontrolled dyspnea Review of Systems Review of Systems: ROS unobtainable: Yes unobtainable due to medical condition PMFSH Past Medical History Medical History Acute and chronic respiratory failure with hypoxia Anxiety Chronic obstructive pulmonary disease, unspecified Chronic respiratory failure with hypoxia, on home oxygen therapy Depression Generalized osteoarthritis of multiple sites History of tobacco abuse Hoarseness Hypertension Osteoarthritis of left hip Rheumatoid arthritis 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) Undifferentiated connective tissue disease (~2009) Urinary incontinence Vision changes Surgical History Surgical History History of ankle surgery Left ORIF History of carpal tunnel release History of cholecystectomy 09/22/2013 History of hemorrhoidectomy Hx of bladder repair surgery Hx of total hysterectomy Family History Family History Father Diabetes mellitus Hypertension Malignant neoplasm of prostate Family history of heart disease in male family member before age 55 Family history of cardiovascular disease Family history of malignant neoplasm Mother Family history of primary malignant neoplasm of liver Sibling Malignant neoplasm of prostate Family history of lung cancer Family history of heart disease in male family member before age 55 Family history of cardiovascular disease Family history of chronic obstructive pulmonary disease Other Arthritis Depression Heart disease High cholesterol Social History Social History (Updated 06/03/22 @ 18:04 by Jose Muñoz MD) Social History: Surrogate medical decision maker: Iraj Del Cid, spouse. Code status: DNR Smoking packs per day: 2 Smoking cigarettes per day: 40.0 Years smoked: 50 Smoking pack-years: 100.00 Smoking status: Former smoker Tobacco type: cigarettes Second hand tobacco smoke exposure: No Smoking end date: 03/15/15 Alcohol intake: current Alcohol use details: 2 drinks of hard liquor consumed occasionally. Substance use: current Substance use type: marijuana Other substance usage details: edibles for relaxation, couple times a month Lack of Transportation: No Lack of Food: Never True Current Housing: I Have Housing Concerned About Future Housing: No Difficulty Paying Gas/Electric Bills: No Difficulty Paying for Meds: No Currently Unemployed: No Education: High School Diploma/GED Difficulty w/ Childcare or Family Care: No Additional living arrangements comments: [place]
--- NOTE | 2022-06-03 19:31 | PC.NURSE ---
181-pt admitted to hospice care as ordered- 184 medication FAXED and written to pharmacy- family at bedside- waiting for IV MS drip to start titration of OXYGEN.
[2022-06-03] MEDS: MORPHINE SULFATE INJ (*CRX) 50 MG in SODIUM CHLORIDE 0.9% IV 95 ML IV CONT (19:45)
[2022-06-03 20:00] VITALS: O2SAT 99
[2022-06-03] MEDS: LORazepam INJ (*CRX) 2 MG/ML VIAL 1 MG IV PUSH (20:12)
[2022-06-03] MEDS: MORPHINE SULFATE (*CRX) 2 MG/ML INJ 1 MG IV PUSH ×2 (20:13→21:36)
[2022-06-03] MEDS: LORazepam INJ (*CRX) 2 MG/ML VIAL 0.5 MG IV PUSH (21:36)
[2022-06-03 23:17] VITALS: BMI 34.4
[2022-06-04] MEDS: MORPHINE SULFATE (*CRX) 2 MG/ML INJ IV PUSH ×4 (00:41→21:46)
[2022-06-04] MEDS: LORazepam INJ (*CRX) 2 MG/ML VIAL 1 MG IV PUSH ×4 (02:34→21:47)
[2022-06-04 08:00] VITALS: O2SAT 99
--- NOTE | 2022-06-04 14:25 | PC.NURSE ---
Pt. received from IMU at 14:25. Report received from Brie GARCIA
--- NOTE | 2022-06-04 14:40 | PC.NURSE ---
This patient, Ceci Del Cid, was transferred to [facility] on 06/04/22 at 1440. Personal belongings sent with patient. Report given to RADHA Wilkins. Appropriate documentation sent with patient. New bag of Morphine handed off to RADHA Wilkins.
[2022-06-04 16:40] VITALS: BP 135/70; PULSE 93; RESP 19; TEMP 35.9; O2SAT 98
[2022-06-04] MEDS: MORPHINE SULFATE INJ (*CRX) 50 MG in SODIUM CHLORIDE 0.9% IV 95 ML IV CONT (17:59)
--- NOTE | 2022-06-04 19:10 | PM.IMPN ---
Progress Note: A&P Assessment and Plan (1) Palliative care encounter: Code(s): Z51.5 - Encounter for palliative care Status: Acute Assessment and Plan: Meets inpatient hospice criteria due to requiring continuous IV medication for control of dyspnea (2) Acute on chronic respiratory failure with hypoxia and hypercapnia: Code(s): J96.21 - Acute and chronic respiratory failure with hypoxia; J96.22 - Acute and chronic respiratory failure with hypercapnia Status: Acute (3) COPD exacerbation: Code(s): J44.1 - Chronic obstructive pulmonary disease with (acute) exacerbation Status: Acute (4) Pulmonary nodule: Code(s): R91.1 - Solitary pulmonary nodule Status: Acute Subjective Date/time seen: 06/04/22 19:10 Interval history: Comfortable throughout the day. Was able to communicate to family that she was ready to . Currently sleeping soundly. Family is noted no discomfort throughout the day. Review of Systems Review of Systems: ROS unobtainable: Yes unobtainable due to medical condition Exam Narrative: Resting comfortably lying supine in hospital bed. Neck without JVD Chest with respirations nonlabored Objective Data Vital Signs Vital Signs: Vital Signs - 24 hr 06/03/22 20:00 06/04/22 09:24 06/04/22 08:00 Temperature Pulse Rate Respiratory Rate Blood Pressure Pulse Oximetry 99 99 Oxygen Delivery BiPAP High Flow Nasal Cannula High Flow Nasal Cannula Oxygen Flow Rate 5 6 Fraction of Inspired Oxygen 35 06/04/22 15:33 06/04/22 16:40 Temperature 96.6 F L Pulse Rate 93 Respiratory Rate 19 Blood Pressure 135/70 Pulse Oximetry 98 Oxygen Delivery High Flow Nasal Cannula Oxygen Flow Rate 6 Fraction of Inspired Oxygen Intake/Output Intake/Output: Intake & Output 06/01/22 06/02/22 06/03/22 06/04/22 23:59 23:59 23:59 23:59 Intake Total 540 Balance 540 Meds/Results Medications: Active Medications Generic Name Dose Route Start Last Admin Trade Name Freq PRN Reason Stop Dose Admin Artificial Tears 1 drop 06/03/22 18:34 Artificial Tears Ophth Soln 15 Ml Bottle EACH EYE Q12H PRN Dry Eye(s) COMFORT Bisacodyl 10 mg 06/03/22 18:53 Bisacodyl 10 Mg Suppository RECTAL QAM PRN Constipation Glycopyrrolate 0.1 mg 06/03/22 23:25 Glycopyrrolate Inj (*Sp) 0.2 Mg/Ml Vial IV PUSH Q4H PRN Secretions Morphine Sulfate 50 mg/ Sodium 100 mls @ 2 mls/hr 06/03/22 18:35 06/04/22 17:59 Chloride IV CONT 1 mg/hr .Q24H IVONE 2 mls/hr Administration 1 MG/HR Lorazepam 1 mg 06/03/22 19:02 06/04/22 14:51 Lorazepam Inj (*Crx) 2 Mg/Ml Vial IV PUSH 1 mg Q4H PRN Administration Anxiety or air hunger Morphine Sulfate 2 mg 06/03/22 22:17 06/04/22 17:06 Morphine Sulfate (*Crx) 2 Mg/Ml Inj IV PUSH 2 mg Q2H PRN Administration Shortness Of Breath Prochlorperazine Edisylate 10 mg 06/03/22 18:47 Prochlorperazine Edisylate 10 Mg/2 Ml Vial IV PUSH Q6H PRN Nausea And Vomiting
[2022-06-04 20:00] VITALS: O2SAT 98
[2022-06-05] MEDS: MORPHINE SULFATE (*CRX) 2 MG/ML INJ IV PUSH ×3 (01:26→08:24)
[2022-06-05 02:36] VITALS: BP 150/65; PULSE 99; RESP 12; TEMP 36.2; O2SAT 100
[2022-06-05] MEDS: LORazepam INJ (*CRX) 2 MG/ML VIAL 1 MG IV PUSH ×2 (04:06→08:24)
[2022-06-05 08:00] VITALS: BP 169/78; PULSE 108; RESP 12; TEMP 35.9; O2SAT 90
[2022-06-05] MEDS: GLYCOPYRROLATE INJ (*SP) 0.2 MG/ML VIAL 0.1 MG IV PUSH (08:25)
[2022-06-05] MEDS: MORPHINE SULFATE (*CRX) 2 MG/ML INJ 4 MG IV PUSH (09:47)
--- NOTE | 2022-06-05 13:58 | P.PNIM_ITS ---
Progress Note: A&P Assessment and Plan (1) Palliative care encounter: Code(s): Z51.5 - Encounter for palliative care Status: Acute Assessment and Plan: * Meets inpatient hospice criteria due to requiring continuous IV medication for control of dyspnea (2) Acute on chronic respiratory failure with hypoxia and hypercapnia: Code(s): J96.21 - Acute and chronic respiratory failure with hypoxia; J96.22 - Acute and chronic respiratory failure with hypercapnia Status: Acute (3) COPD exacerbation: Code(s): J44.1 - Chronic obstructive pulmonary disease with (acute) exacerbation Status: Acute (4) Pulmonary nodule: Code(s): R91.1 - Solitary pulmonary nodule Status: Acute Subjective Date/time seen: 06/05/22 13:58 Interval history: Required multiple prn doses through the night. Comfortable since dose adjustments this AM. Review of Systems Review of Systems: ROS unobtainable: Yes unobtainable due to medical condition Exam Narrative: Resting comfortably lying supine in hospital bed. Neck without JVD Chest with respirations nonlabored, BS decreased Heart RR Extr mottling of feet Objective Data Vital Signs Vital Signs: Vital Signs - 24 hr 06/04/22 15:33 06/04/22 16:40 06/04/22 20:00 Temperature 96.6 F L Pulse Rate 93 Respiratory Rate 19 Blood Pressure 135/70 Pulse Oximetry 98 98 Oxygen Delivery High Flow Nasal Cannula High Flow Nasal Cannula Oxygen Flow Rate 6 6 06/05/22 02:36 06/05/22 08:00 Temperature 97.2 F L 96.6 F L Pulse Rate 99 108 H Respiratory Rate 12 12 Blood Pressure 150/65 H 169/78 H Pulse Oximetry 100 90 Oxygen Delivery Oxygen Flow Rate Intake/Output Intake/Output: Intake & Output 06/02/22 06/03/22 06/04/22 06/05/22 23:59 23:59 23:59 23:59 Intake Total 540 Balance 540 Meds/Results Medications: Active Medications Generic Name Dose Route Start Last Admin Trade Name Freq PRN Reason Stop Dose Admin Artificial Tears 1 drop 06/03/22 18:34 Artificial Tears Ophth Soln 15 Ml Bottle EACH EYE Q12H PRN Dry Eye(s) COMFORT Bisacodyl 10 mg 06/03/22 18:53 Bisacodyl 10 Mg Suppository RECTAL QAM PRN Constipation Glycopyrrolate 0.1 mg 06/03/22 23:25 06/05/22 08:25 Glycopyrrolate Inj (*Sp) 0.2 Mg/Ml Vial IV PUSH 0.1 mg Q4H PRN Administration Secretions Morphine Sulfate 50 mg/ Sodium 100 mls @ 4 mls/hr 06/03/22 18:35 06/05/22 09:47 Chloride IV CONT 1 mg/hr .Q24H IVONE 2 mls/hr Infusion 2 MG/HR Lorazepam 1 mg 06/03/22 19:02 06/05/22 08:24 Lorazepam Inj (*Crx) 2 Mg/Ml Vial IV PUSH 1 mg Q4H PRN Administration Anxiety or air hunger Morphine Sulfate 4 mg 06/05/22 09:45 06/05/22 09:47 Morphine Sulfate (*Crx) 2 Mg/Ml Inj IV PUSH 4 mg Q2H PRN Administration
[2022-06-05] MEDS: MORPHINE SULFATE INJ (*CRX) 50 MG in SODIUM CHLORIDE 0.9% IV 95 ML IV CONT (17:15)
[2022-06-05 20:00] VITALS: BP 155/57; PULSE 111; RESP 12; TEMP 36.3; O2SAT 100
[2022-06-06] MEDS: LORazepam INJ (*CRX) 2 MG/ML VIAL 1 MG IV PUSH (01:09)
[2022-06-06] MEDS: GLYCOPYRROLATE INJ (*SP) 0.2 MG/ML VIAL 0.1 MG IV PUSH (04:06)
[2022-06-06 08:00] VITALS: BP 114/51; PULSE 107; RESP 24; TEMP 35.2; O2SAT 96
[2022-06-06] MEDS: MORPHINE SULFATE INJ (*CRX) 50 MG in SODIUM CHLORIDE 0.9% IV 95 ML IV CONT (16:14)
[2022-06-06 20:00] VITALS: BP 127/59; PULSE 100; RESP 16; TEMP 36.2; O2SAT 98
[2022-06-06] MEDS: PROCHLORPERAZINE EDISYLATE 10 MG/2 ML VIAL IV PUSH (21:00)
[2022-06-06] MEDS: MORPHINE SULFATE (*CRX) 2 MG/ML INJ 4 MG IV PUSH (21:01)
[2022-06-07] MEDS: LORazepam INJ (*CRX) 2 MG/ML VIAL 1 MG IV PUSH (07:45)
[2022-06-07] MEDS: PROCHLORPERAZINE EDISYLATE 10 MG/2 ML VIAL IV PUSH (07:45)
[2022-06-07] MEDS: GLYCOPYRROLATE INJ (*SP) 0.2 MG/ML VIAL 0.1 MG IV PUSH (07:45)
[2022-06-07] MEDS: MORPHINE SULFATE (*CRX) 2 MG/ML INJ 4 MG IV PUSH (07:46)
[2022-06-07 08:00] VITALS: BP 115/44; PULSE 106; RESP 20; TEMP 36.6; O2SAT 98
--- NOTE | 2022-06-07 11:25 | P.PNIM_ITS ---
Progress Note: A&P Assessment and Plan (1) Palliative care encounter: Code(s): Z51.5 - Encounter for palliative care Status: Acute Assessment and Plan: * Meets inpatient hospice criteria due to requiring continuous IV medication for control of dyspnea (2) Acute on chronic respiratory failure with hypoxia and hypercapnia: Code(s): J96.21 - Acute and chronic respiratory failure with hypoxia; J96.22 - Acute and chronic respiratory failure with hypercapnia Status: Acute (3) COPD exacerbation: Code(s): J44.1 - Chronic obstructive pulmonary disease with (acute) exacerbation Status: Acute (4) Pulmonary nodule: Code(s): R91.1 - Solitary pulmonary nodule Status: Acute Subjective Date/time seen: 06/07/22 11:25 Interval history: Required boluses of morphine and ativan overnight and this AM. Review of Systems Review of Systems: ROS unobtainable: Yes unobtainable due to medical condition Exam Narrative: Currently resting comfortably Respirations unlabored Objective Data Vital Signs Vital Signs: Vital Signs - 24 hr 06/06/22 20:00 Temperature 97.2 F L Pulse Rate 100 Respiratory Rate 16 Blood Pressure 127/59 L Pulse Oximetry 98 Intake/Output Intake/Output: Intake & Output 06/04/22 06/05/22 06/06/22 06/07/22 23:59 23:59 23:59 23:59 Intake Total 540 100 100 Output Total 200 Balance 540 100 100 -200 Meds/Results Medications: Active Medications Generic Name Dose Route Start Last Admin Trade Name Freq PRN Reason Stop Dose Admin Artificial Tears 1 drop 06/03/22 18:34 Artificial Tears Ophth Soln 15 Ml Bottle EACH EYE Q12H PRN Dry Eye(s) COMFORT Bisacodyl 10 mg 06/03/22 18:53 Bisacodyl 10 Mg Suppository RECTAL QAM PRN Constipation Glycopyrrolate 0.1 mg 06/03/22 23:25 06/07/22 07:45 Glycopyrrolate Inj (*Sp) 0.2 Mg/Ml Vial IV PUSH 0.1 mg Q4H PRN Administration Secretions Morphine Sulfate 50 mg/ Sodium 100 mls @ 4 mls/hr 06/03/22 18:35 06/06/22 16:14 Chloride IV CONT 2 mg/hr .Q24H IVONE 4 mls/hr Administration 2 MG/HR Lorazepam 1 mg 06/03/22 19:02 06/07/22 07:45 Lorazepam Inj (*Crx) 2 Mg/Ml Vial IV PUSH 1 mg Q4H PRN Administration Anxiety or air hunger Morphine Sulfate 4 mg 06/05/22 09:45 06/07/22 07:46 Morphine Sulfate (*Crx) 2 Mg/Ml Inj IV PUSH 4 mg Q2H PRN Administration Shortness Of Breath Prochlorperazine Edisylate 10 mg 06/03/22 18:47 06/07/22 07:45 Prochlorperazine Edisylate 10 Mg/2 Ml Vial IV PUSH 10 mg Q6H PRN Administration Nausea And Vomiting
[2022-06-07] MEDS: MORPHINE SULFATE INJ (*CRX) 50 MG in SODIUM CHLORIDE 0.9% IV 95 ML 8 MG IV CONT (12:25)
[2022-06-07 20:00] VITALS: BP 92/51; PULSE 98; RESP 12; TEMP 36.6; O2SAT 98
[2022-06-08] MEDS: MORPHINE SULFATE INJ (*CRX) 50 MG in SODIUM CHLORIDE 0.9% IV 95 ML 8 MG IV CONT ×2 (00:11→12:31)
[2022-06-08 08:00] VITALS: BP 130/39; PULSE 105; PULSE 98; RESP 12; TEMP 36.6; O2SAT 96; O2SAT 98
--- NOTE | 2022-06-08 12:54 | P.PNIM_ITS ---
Progress Note: A&P Assessment and Plan (1) Palliative care encounter: Code(s): Z51.5 - Encounter for palliative care Status: Acute Assessment and Plan: * Meets inpatient hospice criteria due to requiring continuous IV medication for control of dyspnea (2) Acute on chronic respiratory failure with hypoxia and hypercapnia: Code(s): J96.21 - Acute and chronic respiratory failure with hypoxia; J96.22 - Acute and chronic respiratory failure with hypercapnia Status: Acute (3) COPD exacerbation: Code(s): J44.1 - Chronic obstructive pulmonary disease with (acute) exacerbation Status: Acute (4) Pulmonary nodule: Code(s): R91.1 - Solitary pulmonary nodule Status: Acute Subjective Date/time seen: 06/08/22 12:54 Interval history: Has remained comfortable since morphine dose increase 06/07. Opened eyes once during bath and hair wash. No further communication with family. No PO intake. Review of Systems Review of Systems: ROS unobtainable: Yes unobtainable due to medical condition Exam Narrative: Currently resting comfortably, w/o response to verbal or tactile stimuli No jvd Respirations unlabored. BS diminished. Heart RR ABD BS hypoactive, soft Extr no edema or mottling MS w/o gross deformity Neuro DN symmetric to inspection Objective Data Vital Signs Vital Signs: Vital Signs - 24 hr 06/07/22 20:00 06/08/22 08:00 Temperature 97.8 F Pulse Rate 98 98 Respiratory Rate 12 12 Blood Pressure 92/51 L Pulse Oximetry 98 98 Oxygen Delivery High Flow Nasal Cannula Oxygen Flow Rate 6 Fraction of Inspired Oxygen 35 Intake/Output Intake/Output: Intake & Output 06/05/22 06/06/22 06/07/22 06/08/22 23:59 23:59 23:59 23:59 Intake Total 100 100 200 Output Total 200 750 Balance 100 100 -200 -550 Meds/Results Medications: Active Medications Generic Name Dose Route Start Last Admin Trade Name Freq PRN Reason Stop Dose Admin Artificial Tears 1 drop 06/03/22 18:34 Artificial Tears Ophth Soln 15 Ml Bottle EACH EYE Q12H PRN Dry Eye(s) COMFORT Bisacodyl 10 mg 06/03/22 18:53 Bisacodyl 10 Mg Suppository RECTAL QAM PRN Constipation Glycopyrrolate 0.1 mg 06/03/22 23:25 06/07/22 07:45 Glycopyrrolate Inj (*Sp) 0.2 Mg/Ml Vial IV PUSH 0.1 mg Q4H PRN Administration Secretions Morphine Sulfate 50 mg/ Sodium 100 mls @ 8 mls/hr 06/07/22 11:45 06/08/22 12:31 Chloride IV CONT 4 mg/hr .[id number] IVONE 8 mls/hr Administration 4 MG/HR Lorazepam 1 mg 06/03/22 19:02 06/07/22 07:45 Lorazepam Inj (*Crx) 2 Mg/Ml Vial IV PUSH 1 mg Q4H PRN Administration Anxiety or air hunger Morphine Sulfate 6 mg 06/07/22 11:45 Morphine Sulfate (*Crx) 2 Mg/Ml Inj IV PUSH Q2H PRN Shortness Of Breath Prochlorperazine Edisylate 10 mg 06/03/22 18:47 06/07/22 07:45 Prochlorper
[2022-06-08 20:00] VITALS: BP 128/56; PULSE 102; RESP 17; TEMP 36.3; O2SAT 95
[2022-06-09] MEDS: WATER FOR IRRIGATION, STERILE 1,000 ML BOTTLE 1000 ML
[2022-06-09 08:00] VITALS: O2SAT 88
[2022-06-09 09:00] VITALS: BP 127/43; PULSE 107; RESP 20; TEMP 36.4; O2SAT 94
[2022-06-09] MEDS: MORPHINE SULFATE INJ (*CRX) 50 MG in SODIUM CHLORIDE 0.9% IV 95 ML 8 MG IV CONT ×3 (10:41→21:39)
[2022-06-09 20:00] VITALS: BP 128/46; PULSE 110; RESP 20; TEMP 35.6; O2SAT 97
--- NOTE | 2022-06-09 21:26 | P.PNIM_ITS ---
Progress Note: A&P Assessment and Plan (1) Palliative care encounter: Code(s): Z51.5 - Encounter for palliative care Status: Acute Assessment and Plan: * Meets inpatient hospice criteria due to requiring continuous IV medication for control of dyspnea (2) Acute on chronic respiratory failure with hypoxia and hypercapnia: Code(s): J96.21 - Acute and chronic respiratory failure with hypoxia; J96.22 - Acute and chronic respiratory failure with hypercapnia Status: Acute (3) COPD exacerbation: Code(s): J44.1 - Chronic obstructive pulmonary disease with (acute) exacerbation Status: Acute (4) Pulmonary nodule: Code(s): R91.1 - Solitary pulmonary nodule Status: Acute Subjective Date/time seen: 06/09/22 10:00 Interval history: Televisit with dental associate at bedside. Remains comfortable on morphine drip at 4mg/hr. Oxygen saturation 77%. Review of Systems Review of Systems: ROS unobtainable: Yes unobtainable due to medical condition Exam Narrative: Unresponsive to verbal or tactile stimuli. Respirations non-labored. Objective Data Vital Signs Vital Signs: Vital Signs - 24 hr 06/09/22 08:00 06/09/22 09:00 06/09/22 20:00 Temperature 97.5 F L 96.1 F L Pulse Rate 107 H 110 H Respiratory Rate 20 20 Blood Pressure 127/43 L 128/46 L Pulse Oximetry 88 L 94 97 Oxygen Delivery High Flow Nasal Cannula Oxygen Flow Rate 5 Fraction of Inspired Oxygen 35 Intake/Output Intake/Output: Intake & Output 06/06/22 06/07/22 06/08/2223 23:59 23:59 23:59 23:59 Intake Total 100 200 200 Output Total 200 750 900 Balance 100 -200 -550 -700 Meds/Results Medications: Active Medications Generic Name Dose Route Start Last Admin Trade Name Freq PRN Reason Stop Dose Admin Artificial Tears 1 drop 06/03/22 18:34 Artificial Tears Ophth Soln 15 Ml Bottle EACH EYE Q12H PRN Dry Eye(s) COMFORT Bisacodyl 10 mg 06/03/22 18:53 Bisacodyl 10 Mg Suppository RECTAL QAM PRN Constipation Glycopyrrolate 0.1 mg 06/03/22 23:25 06/07/22 07:45 Glycopyrrolate Inj (*Sp) 0.2 Mg/Ml Vial IV PUSH 0.1 mg Q4H PRN Administration Secretions Morphine Sulfate 50 mg/ Sodium 100 mls @ 8 mls/hr 06/07/22 11:45 06/09/22 10:41 Chloride IV CONT 4 mg/hr .[id number] IVONE 8 mls/hr Administration 4 MG/HR Lorazepam 1 mg 06/03/22 19:02 06/07/22 07:45 Lorazepam Inj (*Crx) 2 Mg/Ml Vial IV PUSH 1 mg Q4H PRN Administration Anxiety or air hunger Morphine Sulfate 6 mg 06/07/22 11:45 Morphine Sulfate (*Crx) 2 Mg/Ml Inj IV PUSH Q2H PRN Shortness Of Breath Prochlorperazine Edisylate 10 mg 06/03/22 18:47 06/07/22 07:45 Prochlorperazine Edisylate 10 Mg/2 Ml Vial IV PUSH 10 mg Q6H PRN Administration Nausea And Vomiting
[2022-06-10 08:00] VITALS: BP 140/31; PULSE 107; PULSE 110; RESP 12; RESP 20; TEMP 36.6; O2SAT 93; O2SAT 97
[2022-06-10] MEDS: MORPHINE SULFATE INJ (*CRX) 50 MG in SODIUM CHLORIDE 0.9% IV 95 ML 8 MG IV CONT ×2 (09:23→22:00)
--- NOTE | 2022-06-10 13:21 | P.PNIM_ITS ---
Progress Note: A&P Assessment and Plan (1) Palliative care encounter: Code(s): Z51.5 - Encounter for palliative care Status: Acute Assessment and Plan: * Meets inpatient hospice criteria due to requiring continuous IV medication for control of dyspnea (2) Acute on chronic respiratory failure with hypoxia and hypercapnia: Code(s): J96.21 - Acute and chronic respiratory failure with hypoxia; J96.22 - Acute and chronic respiratory failure with hypercapnia Status: Acute (3) COPD exacerbation: Code(s): J44.1 - Chronic obstructive pulmonary disease with (acute) exacerbation Status: Acute (4) Pulmonary nodule: Code(s): R91.1 - Solitary pulmonary nodule Status: Acute Subjective Date/time seen: 06/10/22 13:21 Interval history: Televisit with web marketing assistant at bedside. Remains comfortable on morphine drip at 4mg/hr. Oxygen saturation fluctuating from 80's to 90's. Review of Systems Review of Systems: ROS unobtainable: Yes unobtainable due to medical condition Exam Narrative: Unresponsive to verbal or tactile stimuli. Respirations non-labored. Chest decr BS Heart RR Extr no edema Objective Data Vital Signs Vital Signs: Vital Signs - 24 hr 06/09/22 20:00 06/10/22 08:00 Temperature 96.1 F L Pulse Rate 110 H 110 H Respiratory Rate 20 20 Blood Pressure 128/46 L Pulse Oximetry 97 97 Oxygen Delivery High Flow Nasal Cannula Oxygen Flow Rate 5 Fraction of Inspired Oxygen 35 Intake/Output Intake/Output: Intake & Output 06/07/22 06/08/22 06/09/22 06/10/22 23:59 23:59 23:59 23:59 Intake Total 200 300 100 Output Total 200 750 900 200 Balance -200 -550 -600 -100 Meds/Results Medications: Active Medications Generic Name Dose Route Start Last Admin Trade Name Freq PRN Reason Stop Dose Admin Artificial Tears 1 drop 06/03/22 18:34 Artificial Tears Ophth Soln 15 Ml Bottle EACH EYE Q12H PRN Dry Eye(s) COMFORT Bisacodyl 10 mg 06/03/22 18:53 Bisacodyl 10 Mg Suppository RECTAL QAM PRN Constipation Glycopyrrolate 0.1 mg 06/03/22 23:25 06/07/22 07:45 Glycopyrrolate Inj (*Sp) 0.2 Mg/Ml Vial IV PUSH 0.1 mg Q4H PRN Administration Secretions Morphine Sulfate 50 mg/ Sodium 100 mls @ 8 mls/hr 06/07/22 11:45 06/10/22 09:23 Chloride IV CONT 4 mg/hr .[id number] IVONE 8 mls/hr Administration 4 MG/HR Lorazepam 1 mg 06/03/22 19:02 06/07/22 07:45 Lorazepam Inj (*Crx) 2 Mg/Ml Vial IV PUSH 1 mg Q4H PRN Administration Anxiety or air hunger Morphine Sulfate 6 mg 06/07/22 11:45 Morphine Sulfate (*Crx) 2 Mg/Ml Inj IV PUSH Q2H PRN Shortness Of Breath Prochlorperazine Edisylate 10 mg 06/03/22 18:47 06/07/22 07:45 Prochlorperazine Edisylate 10 Mg/2 Ml Vial IV PUSH 10 mg Q6H PRN Administration Nausea And Vomiting
[2022-06-10 20:00] VITALS: BP 110/42; PULSE 105; RESP 16; TEMP 36; O2SAT 88
[2022-06-11] MEDS: LORazepam INJ (*CRX) 2 MG/ML VIAL 1 MG IV PUSH (06:03)
[2022-06-11 08:00] VITALS: BP 98/43; PULSE 107; RESP 16; TEMP 36.4; O2SAT 86; O2SAT 88
[2022-06-11] MEDS: MORPHINE SULFATE INJ (*CRX) 50 MG in SODIUM CHLORIDE 0.9% IV 95 ML 8 MG IV CONT (10:08)
--- NOTE | 2022-06-11 15:04 | WPDPN ---
Progress Note: A&P Assessment and Plan (1) Palliative care encounter: Code(s): Z51.5 - Encounter for palliative care Status: Acute Assessment and Plan: Continues to meet criteria for general inpatient care on continuous IV morphine drip. Got one dose of prn ativan overnight. Respirations have become agonal and she now has mottling to extremities which deveoped overnight. (2) Acute on chronic respiratory failure with hypoxia and hypercapnia: Code(s): J96.21 - Acute and chronic respiratory failure with hypoxia; J96.22 - Acute and chronic respiratory failure with hypercapnia Status: Acute (3) COPD exacerbation: Code(s): J44.1 - Chronic obstructive pulmonary disease with (acute) exacerbation Status: Acute (4) Pulmonary nodule: Code(s): R91.1 - Solitary pulmonary nodule Status: Acute Subjective Date/time seen: 06/11/22 10:30 Exam Resp: Other: agonal breathing Cardio: Heart sounds: S1 normal heart sound present, S2 normal heart sound present and Abnormal heart opening sounds Skin: Other: mottling to feet and knees. Neuro: General: patient obtunded Objective Data Vital Signs Vital Signs: Vital Signs - 24 hr 06/10/22 19:49 06/10/22 20:00 06/11/22 08:00 Temperature 36.0 C L Pulse Rate 105 H Respiratory Rate 16 Blood Pressure 110/42 L Pulse Oximetry 88 L 88 L Oxygen Delivery High Flow Nasal Cannula High Flow Nasal Cannula Oxygen Flow Rate 6 2 Fraction of Inspired Oxygen 35 06/11/22 08:00 Temperature Pulse Rate Respiratory Rate Blood Pressure Pulse Oximetry Oxygen Delivery High Flow Nasal Cannula Oxygen Flow Rate 2 Fraction of Inspired Oxygen Intake/Output Intake/Output: Intake & Output 06/08/22 06/09/22 06/10/22 06/11/22 23:59 23:59 23:59 23:59 Intake Total 200 300 200 100 Output Total 750 900 200 Balance -550 -600 0 100 Meds/Results Medications: Active Medications Generic Name Dose Route Start Last Admin Trade Name Freq PRN Reason Stop Dose Admin Artificial Tears 1 drop 06/03/22 18:34 Artificial Tears Ophth Soln 15 Ml Bottle EACH EYE Q12H PRN Dry Eye(s) COMFORT Bisacodyl 10 mg 06/03/22 18:53 Bisacodyl 10 Mg Suppository RECTAL QAM PRN Constipation Glycopyrrolate 0.1 mg 06/03/22 23:25 06/07/22 07:45 Glycopyrrolate Inj (*Sp) 0.2 Mg/Ml Vial IV PUSH 0.1 mg Q4H PRN Administration Secretions Morphine Sulfate 50 mg/ Sodium 100 mls @ 8 mls/hr 06/07/22 11:45 06/11/22 10:08 Chloride IV CONT 4 mg/hr .[id number] IVONE 8 mls/hr Administration 4 MG/HR Lorazepam 1 mg 06/03/22 19:02 06/11/22 06:03 Lorazepam Inj (*Crx) 2 Mg/Ml Vial IV PUSH 1 mg Q4H PRN Administration Anxiety or air hunger Morphine Sulfate 6 mg 06/07/22 11:45 Morphine Sulfate (*Crx) 2 Mg/Ml Inj IV PUSH Q2H PRN Shortness Of Breath Prochlorperazine Edisylate 10 mg 06/03/22 18:47 06/07/22 07:45 Prochlorperazine Edisylate 10 Mg/2 Ml Vial IV PUSH 10 mg Q6H PRN Administration Nausea And Vomiting
--- NOTE | 2022-06-11 15:12 | PM.DDS ---
Discharge Summary Date and Time Date of : 06/11/22 Time of : 13:15 Provider Pronounced By: Shellie Benson RN Probable Cause of Probable Cause of : acute or chronic respiratory failure secondary to COPD Summary Hospital Course: 71 yo female admitted with COPD exacerbation, treated with antibiotics and steroids and neb, required bipap. Declined in spite of treatment and was transitionaed to hospice care Additional Data Confirmation of as documented by pronouncing clinician: Pupillary Reflex, Palpable Pulses, Response to Stimuli, Heart Tones and Breath Sounds Name of Provider Notified: Dr. Muñoz Time Provider Notified: 13:46 Provider Requests Autopsy: No Music Producer Notified: Yes Date [facility] Notified of : 06/11/22 Time [facility] Notified of : 13:32
== END 2022-06-11 13:15 | disposition expired | DRG 951 ==
LOC: ANHIMU 18:29 → ANH3MEDSUR 06-04 14:05
PROVIDERS: Admitting Provider Internal Medicine; PCP Family Medicine; Visit Provider Internal Medicine Adolescent Medicine
DX: Z51.5 Encounter for palliative care (principal); J96.21 Acute and chronic respiratory failure with hypoxia; J96.22 Acute and chronic respiratory failure with hypercapnia; J44.1 Chronic obstructive pulmonary disease with (acute) exacerbation; Z99.81 Dependence on supplemental oxygen; R91.1 Solitary pulmonary nodule; M16.12 Unilateral primary osteoarthritis, left hip; M05.79 Rheumatoid arthritis with rheumatoid factor of multiple sites without organ or systems involvement; I10 Essential (primary) hypertension; R32 Unspecified urinary incontinence; G47.61 Periodic limb movement disorder; Z66 Do not resuscitate; Z87.891 Personal history of nicotine dependence; Z90.49 Acquired absence of other specified parts of digestive tract; Z90.710 Acquired absence of both cervix and uterus
CPT/HCPCS: A9270; J0780; J2060; J2270